=== PATIENT | female | born 1945 | race Caucasian/White ===

== ENCOUNTER 2018-08-10 12:21 | Outpatient (REF) | payer MEDICARE, BC, SELFPAY ==
[2018-08-10 13:12] LABS: ALT 16 U/L (12-78); AST 11 U/L (15-37); Albumin 3.9 g/dL (3.4-5.0); Alkaline Phosphatase 67 U/L (46-116); Anion Gap 8.5 mmol/L (3-11); BUN 18 mg/dL (7-18); Bilirubin, Total 0.3 mg/dL (0.2-1.0); CO2 27.5 mmol/L (21.0-32.0); CREATININE 0.81 mg/dL (0.55-1.02); Calcium 9.9 mg/dL (8.5-10.1); Chloride 105 mmol/L (98-107); Cholesterol 174 mg/dL (50-200); Glucose 83 mg/dL (70-100); HDL Cholesterol 63 mg/dL (40-60); LDL CHOLESTEROL 98 mg/dL (<100); Potassium 4.1 mmol/L (3.5-5.1); Sodium 141 mmol/L (136-145); Total Protein 7.5 g/dL (6.4-8.2); Triglyceride 81 mg/dL (30-150)
== END 2018-08-10 12:41 ==
LOC: NCHCN 12:21
PROVIDERS: PCP Family Medicine; Visit Provider Family Medicine
DX: E78.5 Hyperlipidemia, unspecified (principal)
CPT/HCPCS: 80053; 80061; 83721

== ENCOUNTER 2019-06-18 09:51 | Outpatient (REF) | payer MEDICARE, BC, SELFPAY ==
[2019-06-18 12:12] LABS: HCT 37.3 % (36.0-46.0); HGB 12.4 g/dL (12.0-15.5); Mean Corp. HGB Concentration 33.2 g/dL (32.0-36.0); Mean Corpuscular Hemoglobin 29.8 pg (27.0-33.0); Mean Corpuscular Volume 89.7 fL (80-95); Mean Platelet Volume 9.9 fL (8.0-11.0); Platelet Count 278 x1000/uL (130-400); RBC 4.16 m/cumm (4.00-5.20); RBC Distribution Width 14.2 % (11.7-14.6); White Blood Cell Count 6.51 k/cumm (4.4-10.8)
[2019-06-18 12:23] LABS: ALT 17 U/L (14-59); AST 9 U/L (15-37); Albumin 3.7 g/dL (3.4-5.0); Alkaline Phosphatase 79 U/L (46-116); Anion Gap 8.7 mmol/L (3-11); BUN 20 mg/dL (7-18); Bilirubin, Total 0.3 mg/dL (0.2-1.0); CO2 29.3 mmol/L (21.0-32.0); CREATININE 0.88 mg/dL (0.55-1.02); Calcium 9.8 mg/dL (8.5-10.1); Calculated LDL 94 mg/dL; Chloride 104 mmol/L (98-107); Cholesterol 170 mg/dL (50-200); Glucose 85 mg/dL (70-100); HDL Cholesterol 56 mg/dL (40-60); Sodium 142 mmol/L (136-145); Total Protein 7.6 g/dL (6.4-8.2); Triglyceride 100 mg/dL (30-150)
== END 2019-06-18 10:11 ==
LOC: NCHCN 09:51
PROVIDERS: PCP Family Medicine; Visit Provider Family Medicine
DX: I10 Essential (primary) hypertension (principal); R00.2 Palpitations; E78.5 Hyperlipidemia, unspecified; R91.1 Solitary pulmonary nodule
CPT/HCPCS: 80053; 80061; 85027

== ENCOUNTER 2020-02-27 01:06 | Outpatient (CLI) | payer MEDICARE, BC, SELFPAY ==
--- NOTE | 2020-02-27 | DI.DEXA_ITS ---
EXAM: XR DEXA BONE DENSITY W/WO MICKEY CLINICAL HISTORY: SCREENING FOR OSTEOPOROSIS IN POSTMENOPAUSAL WOMAN,Z78.0 TECHNIQUE: Mammotome C densitometer COMPARISON: CT CHEST FOR PULMONARY EMBOLUS from 06/11/2016 FINDINGS: The lateral view of the thoracic and lumbar spine shows no evidence of compression fractures. The connie ne mineral density measurements of the lumbar spine correspond to a total T-score of 2.0, in the norm al range. Bone mineral density measurements of the left hip correspond to a total T-score of 0.8 and a femoral neck T-score of 0.0. The left forearm bone mineral density measurements correspond to a T -score of the distal 3rd of 0.9. IMPRESSION: Normal bone mineral density.
--- NOTE | 2020-02-27 11:40 | DI.MAMMO_ITS ---
EXAM: MAMMO SCREENING CLINICAL HISTORY: SCREENING, Z12.31 TECHNIQUE: Mammograms were interpreted according to the usual protocol including computer analysis w X[employer] Kitchen CAD system, tomosynthesis and C-view imaging. COMPARISON: 2011 through 2018 FINDINGS: The breasts are composed of mainly fatty density , Breast Density category A. No suspicious masses or suspicious microcalcifications are seen. No skin thickening or abnormal axillary lymph nodes are seen. There has been no significant change from prior exams. IMPRESSION: BI-RADS category 1, negative. Yearly screening mammography is recommended. Breast Density - Category A - Almost entirely fatty
== END 2020-02-27 01:26 ==
PROVIDERS: PCP Family Medicine; Visit Provider Family Medicine
DX: Z13.820 Encounter for screening for osteoporosis (principal); Z78.0 Asymptomatic menopausal state; Z12.31 Encounter for screening mammogram for malignant neoplasm of breast
CPT/HCPCS: 77063; 77067; 77080

== ENCOUNTER 2020-03-10 14:19 | Outpatient (CLI) | payer MEDICARE, BC, SELFPAY ==
--- NOTE | 2020-03-10 13:45 | DI.RAD_ITS ---
EXAM: XR HIP RT COMPLETE AP PELVIS INDICATION: right hip pain. COMPARISON: No exams were available for comparison TECHNIQUE: 2D digital imaging was performed. FINDINGS: In the right hip, there is loss of the joint space, subchondral sclerosis and subchondral cyst format ion. Periarticular spurring is also noted. The left hip is well maintained. No acute fracture or d islocation is seen. There are surgical clips seen in the pelvis. Sacroiliac joints and symphysis pu bis appear unremarkable. The soft tissues are unremarkable. IMPRESSION: Marked degenerative changes of the right hip. DATA REPOSITORY: RADIATION DOSE DELIVERED:
== END 2020-03-10 14:39 ==
PROVIDERS: PCP Family Medicine; Referring Provider Family Medicine; Visit Provider Student in an Organized Health Care Education/Training Program
DX: M25.551 Pain in right hip (principal); M16.11 Unilateral primary osteoarthritis, right hip; M70.61 Trochanteric bursitis, right hip
CPT/HCPCS: 99203; 73502

== ENCOUNTER 2020-04-10 14:00 | Outpatient (CLI) | payer MEDICARE, BC, SELFPAY | END 2020-04-10 14:20 | PROVIDERS: PCP Family Medicine; Visit Provider Student in an Organized Health Care Education/Training Program | DX: Z01.818 Encounter for other preprocedural examination (principal); M16.11 Unilateral primary osteoarthritis, right hip; G47.30 Sleep apnea, unspecified ==

== ENCOUNTER 2020-04-14 01:42 | Outpatient (CLI) | payer MEDICARE, BC, SELFPAY ==
[2020-04-14 10:40] LABS: HCT 33.9 % (36.0-46.0); HGB 11.5 g/dL (12.0-15.5); Mean Corp. HGB Concentration 33.9 g/dL (32.0-36.0); Mean Corpuscular Hemoglobin 30.1 pg (27.0-33.0); Mean Corpuscular Volume 88.7 fL (80-95); Mean Platelet Volume 9.9 fL (8.0-11.0); Platelet Count 240 x1000/uL (130-400); RBC 3.82 m/cumm (4.00-5.20); RBC Distribution Width 14.2 % (11.7-14.6); White Blood Cell Count 5.96 k/cumm (4.4-10.8)
[2020-04-14 11:14] LABS: Anion Gap 9.2 mmol/L (3-11); BUN 28 mg/dL (7-18); CO2 27.8 mmol/L (21.0-32.0); CREATININE 0.98 mg/dL (0.55-1.02); Calcium 10.9 mg/dL (8.5-10.1); Chloride 102 mmol/L (98-107); Estimated GFR 55.63 (mL/min/1.73m2); Glucose 94 mg/dL (74-106); Sodium 139 mmol/L (136-145)
[2020-04-16 15:08] LABS: COVID-19 RT-PCR Result NEGATIVE (Negative)
== END 2020-04-14 02:02 ==
PROVIDERS: PCP Family Medicine; Visit Provider Student in an Organized Health Care Education/Training Program
DX: M25.551 Pain in right hip (principal); M16.11 Unilateral primary osteoarthritis, right hip; Z03.818 Encounter for observation for suspected exposure to other biological agents ruled out; Z01.818 Encounter for other preprocedural examination; Z01.812 Encounter for preprocedural laboratory examination
CPT/HCPCS: 36415; 80048; 85027; 86850; 86900; 86901; U0003

== ENCOUNTER 2020-04-16 06:00 | Observation (INO) | payer MEDICARE, BC, SELFPAY ==
[2020-04-16] VITALS (13 sets, daily range): BP systolic 99–135; BP diastolic 60–89; PULSE 61–86; RESP 12–19; TEMP 36.1–36.8; O2SAT 94–100
[2020-04-16] MEDS: Acetaminophen 500 MG TAB 1000 MG PO ×3 (06:38→21:12)
[2020-04-16] MEDS: Celecoxib 200 MG CAP 400 MG PO (06:39)
[2020-04-16] MEDS: Lactated Ringers 1,000 ML 80 ML IV ×2 (06:39→11:00)
--- NOTE | 2020-04-16 07:15 | DI.RAD_ITS ---
EXAM: XR HIP RT IN OR CLINICAL HISTORY: DJD RIGHT HIP TECHNIQUE: 2D and realtime digital imaging was performed. Fluoroscopy was provided in the OR COMPARISON: CR XR HIP RT COMPLETE AP PELVIS from 03/10/2020 FINDINGS: C-arm fluoroscopy was utilized by Dr. Riddle during right hip joint replacement. Hard copies show total hip arthroplasty in position, components appear well seated. Fluoro time, 39.1 seconds. IMPRESSION: RADIATION DOSE DELIVERED: Total DLP
[2020-04-16] MEDS: ceFAZolin 3,000 MG in Normal Saline 100 ML 200 MG IVPB (08:00)
[2020-04-16] MEDS: Bupivacaine 0.25% Pres-Free 30 ML VIAL (08:30)
[2020-04-16] MEDS: Ketorolac 30 MG/ML VIAL (08:30)
--- NOTE | 2020-04-16 12:08 | PT.INIE ---
Date of service: 04/16/20 Time of Service: 11:25 PT Notes Visit Reasons: R HIP TOTAL Physical Therapy Inpatient Initial Evaluation Date: 04/16/2020 Referring Doctor: Faheem Riddle MD PT Orders: PT CONSULT: Status post Ortho surgery. Status post right anterior LIZ. Precautions: Fall. Standard. WBAT on right LE. Patient Profile/Admitting Diagnosis: Will is a 74-year-old female with degenerative joint disease of the right hip and is status post right total hip arthroplasty on postoperative day 0. 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 She has 12 steps from the cellar with rails on both sides. She is independent with all aspects of ADLs without the need for an assistive ambulatory device nor adaptive equipment prior to surgery. She says that she only has had 1 fall in the past 12 months. She has 4 cats and a dog. 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 Equipment Owned/DME: 4 wheeled walker, front wheeled walker, single-point cane Subjective: Will reports discomfort on the right anterior proximal thigh with movement and with weight-bearing. She denies headache, dizziness, chest pain throughout session. She hopes to stay overnight look forward to going home tomorrow with home health services as she will require help with donning and doffing her brace as well as her JIN stockings. She was mildly upset about her incontinent episode right before ambulation activity which this PT and nurse Simin reassured her about. Objective: General Observation: Bilateral TEDS on. IV access in the left UE. Cold pack on the left hip. Mental Status: Alert and oriented x4 Pain: 4/10 in the right hip ROM: Right Upper Extremity: Shoulder Flexion WFL. Shoulder abduction WFL. Elbow flexion WFL. Wrist flexion WFL. Opening and closing of hand WFL. Left Upper Extremity: Shoulder Flexion WFL. Shoulder abduction WFL. Elbow flexion WFL. Wrist flexion WFL. Opening and closing of hand WFL. Right Lower Extremity: Hip flexion WFL. Hip abduction WFL. Knee flexion WFL. Ankle dorsiflexion to neutral only. Ankle plantarflexion WFL. Left Lower Extremity: Hip flexion WFL. Hip abduction WFL. Knee flexion WFL. Ankle dorsiflexion WFL. Ankle plantarflexion WFL. Strength: Right Upper Extremity: Shoulder flexors 5/5. Shoulder abductors 5/5. Elbow flexors 5/5. Elbow extensors 5/5. Profiling Machine Set Up Operator strong. Left Upper Extremity: Shoulder flexors 5/5. Shoulder abductors 5/5. Elbow flexors 5/5. Elbow extensors 5/5. Profiling Machine Set Up Operator strong. Right Lower Extremity: Hip flexors 4-/5. Hip abductors 4-/5. Knee flexors 5/5. Knee extensors 4-/5. Ankle dorsiflexors 5/5. Ankle plantarflexors 5/5. Left Lower Extremity:Hip flexors 5/5. Hip abductors 5/5. Knee flexors 5/5. Knee extensors 5/5. Ankle dorsiflexors 5/5. Ankle plantarflexors 5/5. Bed Mobility/Transfers: Supine to sit SBA with HOB at 30 degrees Sit to supine contact-guard assist Sit to stand contact-guard assist Stand to sit contact-guard assist Bed to chair contact-guard assist Chair to bed contact-guard assist Gait: Will tolerated level surface ambulation of 60 feet with contact-guard assist with WBAT on the right LE using a front wheeled walker with a leather AFO on the right. Step to gait pattern. Decreased ronna. Initially felt awkward walking but then was able to increase her step length and height towards the end of activity. Balance: Static Sitting: Normal Dynamic Sitting: Normal Static Standing: Fair Dynamic Standing: Fair Special Tests: Mobility Limitations Standardized Measure [facility] AM-PAC 6 clicks Basic Mobility Inpatient Short Form: Raw Score: 18 CMS Score: 47% deficit Informed Consent/Education: Patient instructed in purpose of PT consult and plan of care. Assessment: She demonstrates functional mobility decline requiring the use of a front wheeled walker for all mobility ADL performance, difficulty with walking, unsteadiness on feet, and weakness on the right hip muscles due to postoperative status. Will is a 74-year-old female with degenerative joint disease of the right hip and is status post right total hip arthroplasty on postoperative day 0. Patient presents with clinical signs and symptoms consistent with current/admitting diagnoses that have resulted to mobility limitations, gait instability, generalized weakness, and impairment of motor control as demonstrated by the following impairment level findings: 1. Decreased strength to right hip major muscle groups 2. Impaired standing balance 3. Impaired activity tolerance Impairments are contributing to the following functional limitations: 1. Inability to safely ambulate without assistive device and physical assistance 2. Increase completion time for mobility ADL performance 3. Increased fall risk 4. Inability to negotiate steps alone safely Patient is assessed as a 41997 moderate complexity based on the following: History: 74-year-old female with impairment level findings, functional limitations, and past medical history as indicated above Examination: Demonstrable impairment in strength, balance, and mobility level with underlying impairments and functional limitations as documented above Presentation:Evolving Decision Makin moderate complexity Goals: Goals X 3 days 1. Supine-Sit independent 2. Sit-Supine independent 3. Sit-Stand independent 4. Stand-Sit independent 5. Bed-Chair independent 6. Chair-Bed independent 7. Standby assist gait on level surface with use of least restrictive device for at least 100 feet without report of pain nor dyspnea 8. Standby assist stair negotiation while holding onto bilateral rails for at least 6 steps without report of pain nor dyspnea 9. Independent with home exercise program 10. Good static and dynamic standing balance/tolerance Plan of Care/Treatment Plan: 1-2x/day, 7 days/week x 1 week. Plan of care has been reviewed with the RN INTERNATIONAL providing the service under Physical Therapy direction. Initiate Physical Therapy intervention for strengthening, bed mobility, transfers, gait, stairs, balance training, use of assistive device. DISCHARGE RECOMMENDATIONS: Patient will benefit from home health PT services in order to progress mobility level using least restrictive assistive ambulatory device, assess home safety, identify additional equipment needs, and establish a functional maintenance program that will increase ability of patient to remain at home. No equipment needs at this time. PT Intervention: Today consisted of initial physical therapy evaluation as well as education training on mobility ADL performance using a front wheel walker. TREATMENT CODE/TIME: 9716 2 x 25 minutes, 9753 0 x 16 minutes beginning at 11:25 AM. Thank you for the opportunity to participate in the care of this patient. Nikole Berg PT, DPT, CLT [facility] [place], [place]
--- NOTE | 2020-04-16 12:32 | ROE_ITS ---
Date of service: 04/16/20 Time of Service: 09:32 Operative Note Operative Note DATE OF PROCEDURE: 04/16/20 PRE-OP DIAGNOSIS: Right Hip Osteoarthritis POST-OP DIAGNOSIS: same PROCEDURE: Right Anterior Total Hip Arthroplasty SURGEON: Faheem Riddle CASH MANAGEMENT SPECIALIST: Usman Ford ANESTHESIA: spinal ESTIMATED BLOOD LOSS: 300 PATHOLOGY: none sent TOURNIQUET TIME: 0 COMPLICATIONS: None Patient was transported to: PACU Patient's condition: stable Implants: 1. Depuy [place] Acetabular Component, 54mm 2. Depuy Acetabular Liner, [id number] 3. Depuy Corail Standard Collared Femoral Stem, Size 11 4. Depuy Altrx Ceramic Femoral Head, Size 32+1.5mm Indications: I have seen Will in clinic for symptoms of hip arthritis, confirmed with radiographic findings. Will has exhausted nonoperative methods and was having significant limitations in daily function and desired better function and less pain. I discussed the technical details of a hip replacement. I explained the risks of the procedure to include, but not limited to, bleeding, infection, pain, stiffness, fracture, damage to nerves and vessels, damage to muscles and tendons, loosening, instability, leg length inequality, need for repeat procedure, blood clot and cardiopulmonary demise. Despite these risks, Will elected to proceed. Findings: There was significant signs of arthritis throughout the hip. Procedure Description: Will was greeted in the preoperative holding area where the correct side was identified and marked. The consent was reviewed with the patient and signed. The history and physical was updated. All questions were answered. Will was taken back to the operating room. A spinal anesthestic was then administered. The patient was placed into the supine position on the operating room table. The patient was then positioned onto the ARCH table. Both feet were wrapped with Webrill cotton wrap along with Coban. The feet were placed in specialized boots for the ARCH table, well seated within the boot and secured. SCDs were applied. The patient was then slid down onto a peroneal post and the nonoperative leg was secured in a leg chaudhry attached to the table. The operative side was placed into the ARCH table attachment and bed height and positioning was secured. The pannus was taped with foam tape and pulled across her torso to clear the anterior hip area. A preoperative AP pelvis was obtained to serve as a reference for determining leg lengths. Prophylactic antibiotics in the form of Cefazolin were administered. 1g of Tranxemic Acid was given intravenously within 30 minutes of incision. The right leg was then prepped with Chloraprep and draped in a standard fashion. A second prep with Chloraprep was performed prior to placement of a shower-curtain type drape with Iodine i mpregnated skin protection. A timeout to confirm correct identity, side and site, procedure, allergies, anesthesia, and medical concerns was performed. An obliquely oriented incision was made starting lateral to the ASIS and running distal over the Tensor Fascia Annie (TFL) muscle belly toward the fibular head, approximately 10cm. The skin and soft tissue was dissected sharply, through Nolberto?s fascia, and to the fascia of the TFL. With the fascia and superior border of the IT band identified, the fascia was incised with a new knife just above any perforators from the IT band. The TFL muscle belly was bluntly dissected away from the fascia and moved laterally. The fat between TFL and rectus was identified to ensure the dissection was not within the TFL. Blunt dissection created space between abductors and the capsule and retractor was placed over the lateral femoral neck. The fibers of the rectus femoris tendon were identified and these were freed from the anterior capsule. A second cobra retractor was placed around the medial femoral neck. The TFL was further retracted laterally to show the deep fascia. Careful dissection through this layer identified three main crossing vessels of the lateral femoral circumflex. These were cauterized in multiple locations and then cut without any noticeable bleeding. The TFL was further released bluntly from the deep fascia to expose anterior hip capsule and fat The Ilir orthopaedic retractor was then placed beneath the TFL and against sartorius and medial soft tissues to protect and retract the soft tissues. A T-capsulotomy was then performed starting at the superior lateral acetabulum and moving distally to the intertrochanteric ridge. These capsular flaps were tagged with a No. 1 Ethibond and elevated from within. The capsular flaps were released to the shoulder of the lateral neck and to the lesser trochanter to give excellent visualization of the proximal femur. A neck osteotomy was performed using an oscillating saw based on preoperative templates. This cut started in the shoulder and of the lateral neck and exited medially. The saw was at all times directed medially to avoid injury to the greater trochanter. 6cm of traction was applied to the leg and the osteotomy opened. The femoral head was removed with a corkscrew, making sure to protect the TFL on its exit. This was measured on the back table to determing the starting reamer size. Portions of the rectus obscuring visualization were minimally elevated off the superior acetabulum. An anterior retractor was placed over the anterior wall between capsule and labrum and attached to the Gripper retraction system. A posterior retractor was placed similarly. This provided excellent visualization. The contents of the cotyloid fossa were removed with electrocautery and the labrum was removed with a knife. There was a notable floor osteophyte. There was significant chondromalacia of the superior acetabulum. Acetabular reaming began with a 48mm reamer. This first reaming was directed anterior to posterior and medial to get down to the true floor. This was inspected and reamed until the true floor was reached. The anterior retractor was then released and entry and exit was provided by traction on the capsular flaps. I then reamed sequentially up to a 54mm reamer where good fit was obtained. The larger reamers were oriented based on anatomical reference of the anterior and lateral cosme to ensure proper abduction and anteversion. Positioning and size was confirmed with the fluoroscopy. A 54mm Depuy [place] acetabular component was selected. The acetabulum was reamed around the periphery with the selected acetabular size to prevent a rim fit. The deep tissues were irrigated. The acetabular component was then impacted in a position of about 40-45 degrees of abduction and 15-20 degrees of anteversion, using the patient?s anatomy as the ultimate landmark. Fluoroscopy was used to confirm this. There was excellent clinical data analyst of the acetabular component and the inserting handle was removed. The acetabular liner, Depuy [id number] polyethylene liner, was inserted and lined up with the tines of the acetabular component. There was no soft tissue interposition. The liner was then impacted into position and confirmed to be well-seated. A portion of the aly-articular cocktail was then injected around the acetabulum into the capsule and periosteum. This cocktail consisted of 50cc of 0.25% Bupivicaine and 20cc of Exparel, expanded to a total of 120cc. Traction was released from the femur. The leg was rotated to 120 degrees. Any remaining medial capsule was released until the lesser trochanter was easily palpable. A Andino retractor was placed medially. The lateral capsule was further released into the shoulder to allow access to the greater trochanter. A Andino retractor was placed over the greater trochanter which allowed the trochanter to flip in front of the capsule for excellent exposure. The leg was brought down into maximal extension and 20 degrees of adduction while ensuring there was no impingement on the acetabulum. Any remnant capsule within the trochanter was released. Piriformis and obturator externis were identified and protected. There was excellent access to the proximal femur. The lateral neck remnant was removed with a rongeur. A blunt canal probe was used to identify the canal and trajectory for later broaching. A box osteotome initiated the broach course. A small curved rasp and a curved curette were used to work laterally. Broaching then began with a size 8 Corail broach. This was inserted manually around the trochanter and into the canal before mallet blows. The broach was seated to a few millimeters below the cut level based on the neck cut and the preoperative template. Sequential broaching was continued with the [employer] pneumatic broaching device until a tight fit was obtained with good rotational control of the femur. A trial s tandard neck was inserted along with a 1.5 trial head. The leg was brought out of extension and adduction and then reduced with traction and internal rotation. The leg was stable anteriorly in a position of 30 degrees of extension and 90 degrees of external rotation. Fluoroscopy was used to ensure there was no fracture and the stem was seated well. Leg lengths were checked with an AP pelvis and pelvic reference points. [employer] navigation system was used to confirm appropriate positioning and leg length and offset. Once content with the desired offset and leg lengths, the leg was bro ught back into extension, external rotation and adduction. The periosteum and surrounding tissue was injected with remaining portion of the aly-articular cocktail. The proximal femur was irrigated as well as the deep tissues. The Depuy Corail standard collared stem, size 11, was then manually inserted into the proximal femur making sure to control rotation. It was then malleted into position with light blows, giving breaks to allow bone expansion and decrease risk of fracture. The selected Depuy Altrx Ceramic Head, size 36+1.5mm, was then placed onto the clean and dry trunnion and secured with impaction onto the tapered fit. The leg was brought back out of extension and adduction and reduced with traction and internal rotation. Stability was confirmed with no shuck at 90 degrees of external rotation and 30 degrees of extension. No impingement through range of motion arc. Final x-ray images were obtained with fluoroscopy to confirm adequate positioning and no intraoperative fracture. The deep tissues were thoroughly irrigated with Irrisept chlorhexadine solution. The second dose of TXA 1g was administered intravenously.The capsule was then reapproximated with the previously placed Ethibond sutures. The TFL fascia was finally closed with a No. 2 Stratafix, barbed suture. Deep tissues were then reapproximated with 0 Vicryl and a running 2-0 Vicryl. The skin was closed with a running 4-0 Monocryl in a subcuticular fashion. This was reinforced with skin glue. A Mepilex silver dressing was applied. At the end of the case, all counts were correct. Will was transferred to the hospital bed without difficulty and suffering no apparent complication. Will has a good prognosis. Physical therapy will start today and without restrictions, weight-bearing as tolerated. Aspirin 81mg BID will be used for DVT prophylaxis.
[2020-04-16] MEDS: Normal Saline Flush 10 ML SYR IV ×2 (12:48→21:14)
[2020-04-16] MEDS: HYDROmorphone 2 MG/ML VIAL 0.5 MG IVP (12:49)
--- NOTE | 2020-04-16 14:47 | PTTR_ITS ---
Date of service: 04/16/20 Time of Service: 14:47 PT Notes Visit Reasons: R HIP TOTAL Physical Therapy Inpatient Treatment Note Date: 04/16/2020 Referring Doctor: Faheem Riddle MD PT Orders: PT CONSULT: Status post Ortho surgery. Status post right anterior LIZ. Precautions: Fall. Standard. WBAT on right LE. Subjective: Is happy about how she has done so much on the day of surgery. She hopes to go home with services to help with mobility progression and self- care tasks. Objective: General Observation: Bilateral TEDS on. IV access in the left UE. Cold pack on the left hip. Mental Status: Alert and oriented x4 Pain: 4/10 in the right hip Bed Mobility/Transfers: Supine to sit SBA with HOB at 30 degrees Sit to supine standby assist Sit to stand standby assist Stand to sit standby assist Bed to chair standby assist Chair to bed standby assist Gait: Will tolerated level surface ambulation of 120 feet x 2 with SBA with WBAT on the right LE using a front wheeled walker with a leather AFO on the right. Step-through gait pattern. Mireille beginning to increase. Was able to follow and tolerate instructions for step-through gait pattern. THERA EX: Initiated seated level gluteal and quadriceps setting exercises x 10 as well as B ankle pumping with instruction to perform said exercises every two to three hours. Exercise packet provided. Assessment: Tolerated afternoon session well with confindece demonstrated with stair negotiation. Improved mireille and gait pattern observed as well. has good understanding of exercises. Advised patient to ring her amaya for all [id number]/out-of-bed activities. DISCHARGE RECOMMENDATIONS: Patient will benefit from home health PT services in order to progress mobility level using FWW ambulatory device, assess home safety, identify additional equipment needs, and establish a functional maintenance program that will increase ability of patient to remain at home. OT for training and assistance with dressing and bathing tasks. TREATMENT CODE/TIME: 63778 x 25 minutes, 90680 x 18 minutes beginning at 14:47 PM.
--- NOTE | 2020-04-16 14:52 | INITIAL_ITS ---
- If Service Date Differs Date of service: 04/16/20 Time of Service: 14:52 Care Management Initial Assess REASON FOR HOSPITALIZATION:: Total Right Hip PAST MEDICAL HISTORY/PAST SURGICAL HISTORY:: DJD, sleep apnea, decrease hearing, hypercalcemia, TBI, headaches, HTN, pulmonary nodule, hyperlipidemia. PREVIOUS FUNCTIONAL STATUS/SOCIAL/FAMILY SUPPORTS:: Will lives alone in [place], she has one dog and four cats. She is a retired teacher [employer]. She was indepedent prior to surgery, with meals, transportation and ADL's. She does have close friends in the community that are supportive. CURRENT FUNCTIONAL STATUS:: Will, is alert and engaged with CM during assessment. She is is requesting home health PT/OT. She does have a brace that she needs to wear on her lower extremity and stairs at home. She will have to use a walker and learn to navigate her home. agrees with the plan for home health PT and OT. CM faxed over [employer] [facility] request for servcies. ADVANCE DIRECTIVES:: She has a copy and now in the chart. CM provided new forms for her to review with her sister. Has patient been provided with info about the portal/API?: Yes Did the patient sign up for the portal?: No CODE STATUS:: Full Code INSURANCE COVERAGE / FINANCIAL ISSUES:: Blue Cross Blue Shield, Medicare CURRENT HOME/COMMUNITY SERVICES/EQUIPMENT:: [facility] PRIMARY CARE PHYSICIAN:: POTENTIAL DISCHARGE NEEDS:: New home health services for PT/OT and follow up with as directed. PATIENT/FAMILY EDUCATION NEEDS:: Discharge education, limitations and follow up plan of care includiong ask me three and self management. ANTICIPATED BARRIERS TO DISCHARGE:: No identified barriers TRANSPORTATION:: Via private car with friend at time of discharge. PLAN:: Will will be discharged home when medically ready. She already has her FWW from home, she will have new home health PT and OT. Anticipate she will be discharged home on .
[2020-04-16] MEDS: ceFAZolin 1 GM/50 ML BAG IVPB (16:34)
[2020-04-16] MEDS: Calcium Carbonate 1.25 GM TAB PO (21:12)
[2020-04-16] MEDS: Aspirin E.C. 81 MG TABEC PO (21:13)
[2020-04-16] MEDS: Celecoxib 100 MG CAP 200 MG PO (21:13)
[2020-04-17] MEDS: Lactated Ringers 1,000 ML 80 ML IV (00:30)
[2020-04-17] MEDS: ceFAZolin 1 GM/50 ML BAG IVPB ×2 (00:31→08:01)
[2020-04-17] MEDS: HYDROmorphone 2 MG TAB PO (00:55)
[2020-04-17] MEDS: Docusate Sodium 100 MG CAP PO (01:00)
[2020-04-17 03:37] VITALS: BP 102/58; PULSE 79; RESP 18; TEMP 36.5; O2SAT 96
[2020-04-17 07:23] VITALS: BP 110/72; PULSE 85; RESP 16; TEMP 36.7; O2SAT 97
[2020-04-17] MEDS: hydroCHLOROthiazide 25 MG TAB PO (07:59)
[2020-04-17] MEDS: Cholecalciferol (Vitamin D3) 1,000 UNIT TAB 1000 UNITS PO (07:59)
[2020-04-17] MEDS: Magnesium Oxide 400 MG TAB PO (07:59)
[2020-04-17] MEDS: Aspirin E.C. 81 MG TABEC PO (07:59)
[2020-04-17] MEDS: Celecoxib 100 MG CAP 200 MG PO (07:59)
[2020-04-17] MEDS: Calcium Carbonate 1.25 GM TAB PO (08:00)
[2020-04-17] MEDS: Acetaminophen 500 MG TAB 1000 MG PO (08:00)
[2020-04-17] MEDS: Pantoprazole 40 MG TABCR PO (08:00)
[2020-04-17] MEDS: Multivitamin w/Minerals TAB 1 TAB PO (08:00)
[2020-04-17] MEDS: Ascorbic Acid 500 MG TAB 1000 MG PO (08:00)
--- NOTE | 2020-04-17 09:40 | W.PM.DS.N ---
Date of service: 04/17/20 Time of Service: 09:42 DS: Diagnosis Discharge Diagnosis (1) Degenerative joint disease of right hip: Status: Chronic Discharge Plan Disposition Patient Disposition: HOME Condition: Good Discharge Details Reason For Visit: Right Hip DJD Admit Date/Time: 04/16/20 06:00 Admit Provider: Faheem Riddle Attending Provider: Faheem Riddle Primary Care Provider: Estephanie Still Hospital Course Hospital Course: Patient was admitted to the medical/surgical floor following the procedure. The surgery was tolerated well without any notable medical, surgical, or anesthetic complications. Mobilization began postoperatively. Will was voiding spontaneously. Vitals were stable. Physical therapy worked with the patient and was cleared for discharge home. No acute medical issues. Pain was controlled on oral regimen. Home Meds and New Rx's Prescriptions: New acetaminophen 500 mg tablet 1,000 mg PO Q8H PRN (Reason: pain) Qty: 90 RF: 3 aspirin 81 mg tablet,delayed release (DR/EC) 81 mg PO BID Qty: 60 RF: 0 celecoxib 200 mg capsule 200 mg PO BID PRN (Reason: pain) Qty: 60 RF: 1 docusate sodium [Colace] 100 mg capsule 100 mg PO BID PRNQty: 10 RF: 0 hydromorphone 2 mg tablet 2 mg PO Q6H PRN PRN (Reason: pain) Qty: 12 RF: 0 pantoprazole 40 mg tablet,delayed release (DR/EC) 40 mg PO DAILY Qty: 30 RF: 0 Continued ICaps [id number] ronw-be-bt-unit tablet extended release 2 tab PO DAILY RF: 0 hydrochlorothiazide 25 mg tablet 25 mg PO DAILY RF: 0 ascorbic acid (vitamin C) 500 mg tablet 1 gm PO DAILY RF: 0 cholecalciferol (vitamin D3) 125 mcg (5,000 unit) capsule 125 mcg PO DAILY RF: 0 magnesium hydroxide 400 mg (170 mg magnesium) tablet,chewable 400 mg PO DAILY RF: 0 multivitamin 1 EACH capsule 1 tab PO DAILY RF: 0 cholecalciferol (vitamin D3) 1,000 UNITS tablet 1 tab PO DAILY RF: 0 calcium carbonate [Calcium 500] 500 mg calcium (1,250 mg) Tablet 2,000 mg PO BID RF: 0 Discontinued aspirin 325 MG tablet 1 tab PO PRN PRNRF: 0 acetaminophen [Tylenol Extra Strength] 500 MG tablet 1,000 mg PO PRN PRNRF: 0 Discharge Instructions Additional Instructions: Dr. Riddle's Total Hip Discharge Instructions Activity: The most important activity is to walk. You should try to take short walks a few times a day. You have no restrictions on movement or positioning, but do not try to force what you do. You will find some stiffness and weakness with hip flexion (lifting your knee). Do not try to strengthen this too early, continue to practice walking and stairs and this will come. - Home Health physical and occupational therapy will be scheduled. - You should wear the JIN hose on both legs for 2 weeks. You may remove those at night. These prevent blood pooling and swelling. Dressing: Keep the surgical dressing in place for at least one week, although it may stay in place untill follow-up. It may get wet after 3 days but avoid soaking the dressing. If it gets wet, just lightly pat dry. Most people prefer to cover the dressing with some ClingWrap, Saran Wrap, to keep it dry. After the first week it may be removed if desired and then replaced with light gauze and tape or nothing. It is important to always keep some gauze or the dressing between skin folds, especially when you are sitting, so the incision is not folded over on itself at the belly fold. Medications: - You should take Tylenol and an anti-inflammatory Celebrex as your primary pain control medications - You have been prescribed a stronger pain medication Hydromorphone for breakthrough pain, take as needed as prescribed. - You have also been prescribed a stomach acid reduction agent Pantoprozole to help reduce stomach acid and reflux. - You will be taking Aspirin 81mg twice a day for DVT prevention unless instructed otherwise. - If you have constipation you should take Colace or Miralax (both [id number]-cruhrmo). It takes most people 3-4 days to have a bowel movement. - You may apply ice to the hip and thigh. Follow-up: 2 weeks. If you have any acute concerns or questions, please do not hesitate to contact the office at [phone]. You may contact Dr. Riddle with any questions after hours through the hospital at [phone] or on his cell phone at [phone]. 1. Encounter Date and Reason I certify that WILL ARAMBULA was seen by Faheem Riddle MD on 04/17/20 and that I had a [id number] encounter with this patient that meets the physician face to face encounter requirements. 2. Clinical Findings Supporting Skilled Need and Homebound Status I certify that home health services are medically necessary, include either intermittent halfway and/or physical/speech therapy, and that this patient is homebound in that absences from the home require considerable and taxing effort and are infrequent or of short duration, or are attributable to the need to receive medical care. [X] (a) Attached documentation from encounter provides clinical findings supporting skilled need and homebound status (including what assistance patient requires to leave the home). The encounter with the patient was in whole, or in part, for the following medical condition, which is the primary reason for home health care: Right Hip DJD Fdc: Physical Therapy: Will would benefit from home health PT and OT to address ambulatory dysfunction, weakness, and stiffness from long standing DJD of the right hip, now status post right anterior hip replacement, complicated by obesity along with assistance to accomplish ADL's. There are no restrictions. WBAT with assistance. She also requires the donning and doffing of a right ankle brace needed for ambulation. Speech Therapy: Homebound: Will has notable limitations with gait and is unable to leave her home unassisted. 3. Certification and Authentication I certify that I composed the above information based on my clinical judgement relating to this patient's medical condition and, if applicable, clinical findings communicated to me by the NPP or inpatient physician who performed the Home Health Referral. All further orders will be obtained through Dr. Faheem Riddle. Stand Alone Forms: Nursing Discharge Form Referrals: Faheem iRddle MD [ [facility] STAFF PHYSICIAN] - 05/02/20 11:15 am Activity:: Activity as Tolerated Equipment/Supplies:: Walker Diet:: As Tolerated Discharge Orders Discharge Orders: Discharge Order (Routine); Ordered 04/17/20 Ordered By: Faheem Riddle DS: Summary Status at Discharge Functional status at discharge: uses cane/walker Overall status at discharge: patient is progressing back to baseline Mental Status: mental status grossly normal Speech and Movement: speech and movement normal Mood: congruent mood Affect: normal affect Exam Psych Mental Status: mental status grossly normal Speech and Movement: speech and movement normal Mood: congruent mood Affect: normal affect DS: Data Vitals/I&O Vitals and I&O: Vital Signs Temperature 36.7 C 04/17/20 07:23 Temperature Source Tympanic 04/17/20 07:23 Pulse 85 04/17/20 07:23 Pulse Rhythm Regular 04/17/20 00:31 Respiratory Rate 16 04/17/20 07:23 Respiratory Effort 04/17/20 00:31 Respiratory Depth Normal 04/17/20 00:31 Respiratory Pattern Normal 04/17/20 00:31 Blood Pressure 110/72 04/17/20 07:23 Pulse Oximetry 97 04/17/20 07:23 Respiratory End-tidal CO2 29 04/16/20 10:14 Oxygen Delivery Method Room Air 04/17/20 07:23 Oxygen Flow Rate 0 04/17/20 07:23 Pain Level 1 04/17/20 07:23 Intake & Output 04/16/20 04/16/20 04/17/20 11:59 23:59 11:59 Intake Total 1561.333 / 2796.666 1235.333 / 2796.666 1006.000 / 1006.000 Output Total 300 / 1600 1300 / 1600 900 / 900 Balance 1261.333 / 1196.666 -64.667 / 1196.666 106.000 / 106.000 Weight 105.4 kg Intake: IV 1011.333 / 1526.666 515.333 / 1526.666 606.000 / 606.000 Oral 550 / 1270 720 / 1270 400 / 400 Output: Urine 1300 / 1300 900 / 900 Estimated Blood Loss 300 / 300 Other: Urine Color Yellow Yellow Urine Appearance Clear Clear Urine Odor Normal Normal Comment pt incontinent when standing at bedside in preparation for ambulating with PT Void x1 in the bedside commode. Emesis Description None Voiding Methods Incontinent Bedside Commode Bedside Commode Diaper [facility] Medical History Closed head injury (Acute) Slipped on ice and hit head, had it worked up, and no current issues Degenerative joint disease of right hip (Chronic) Right ankle injury (Acute) Pt. injured ankle years ago and wears a brace consistently Sleep apnea (Acute) uses cpap Trochanteric bursitis, right hip (Chronic) Surgical History Appendectomy Cholecystectomy colonoscopy (03/02/17) H/O bilateral breast reduction surgery (Acute) History of hysterectomy (Chronic) History of reverse total replacement of left shoulder joint (Inactive) History of total replacement of right shoulder joint (Acute) Hx of cataract extraction (Chronic) Hx of rotator cuff surgery (Acute) bilat x4 Social History Smoking/Tobacco Use Status: Never Drug use: Never Current gender identity: female
--- NOTE | 2020-04-18 18:00 | INDS_ITS ---
Date of service: 04/22/20 Time of Service: 09:52 PT Notes Visit Reasons: Right Hip DJD Inpatient Physical Therapy Discharge Summary Dates: 04/18/2020 Dates of Service: 04/16/2020 through 04/17/2020 This is a clinical summary of care provided on the duration of dates listed above. No charge was made in the completion of this documentation. Referring Doctor: Faheem Riddle MD PT Orders: PT CONSULT: Status post Ortho surgery. Status post right anterior LIZ. Precautions: Fall. Standard. WBAT on right LE. Patient Profile/Admitting Diagnosis: Will is a 74-year-old female with degenerative joint disease of the right hip and is status post right total hip arthroplasty on postoperative day 1. PMHX: Medical History (Updated 04/10/20 @ 17:52 by GEMMA Rivera) Closed head injury (Acute) Degenerative joint disease of right hip (Chronic) Trochanteric bursitis, right hip (Chronic) Surgical History (Updated 07/19/18 @ 14:35 by [employer] [place]) Appendectomy Cholecystectomy colonoscopy (03/02/17) Social History/Home Situation: Will lives alone in a private home with 4 steps that lead onto a with rails on both sides, there is 1 step up to enter the main entrance of her house. She has 12 steps from the cellar with rails on both sides. She is independent with all aspects of ADLs without the need for an assistive ambulatory device nor adaptive equipment prior to surgery. She says that she only has had 1 fall in the past 12 months. She has 4 cats and a dog. 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 Equipment Owned/DME: 4 wheeled walker, front wheeled walker, single-point cane Subjective: Looks forward to going home today. Is very hapy to have gotten exercises in a written packet that she can take home with her. Agreeable to [facility] PT/OT services. Objective: General Observation: Bilateral TEDS on. IV access in the left UE. Cold pack on the left hip. Mental Status: Alert and oriented x4 Pain: 1-2/10 in the right hip ROM: Right Upper Extremity: Shoulder Flexion WFL. Shoulder abduction WFL. Elbow flexion WFL. Wrist flexion WFL. Opening and closing of hand WFL. Left Upper Extremity: Shoulder Flexion WFL. Shoulder abduction WFL. Elbow flexion WFL. Wrist flexion WFL. Opening and closing of hand WFL. Right Lower Extremity: Hip flexion WFL. Hip abduction WFL. Knee flexion WFL. Ankle dorsiflexion to neutral only. Ankle plantarflexion WFL. Left Lower Extremity: Hip flexion WFL. Hip abduction WFL. Knee flexion WFL. Ankle dorsiflexion WFL. Ankle plantarflexion WFL. Strength: Right Upper Extremity: Shoulder flexors 5/5. Shoulder abductors 5/5. Elbow flexors 5/5. Elbow extensors 5/5. [employer] Operator strong. Left Upper Extremity: Shoulder flexors 5/5. Shoulder abductors 5/5. Elbow flexors 5/5. Elbow extensors 5/5. [employer] Operator strong. Right Lower Extremity: Hip flexors 4-/5. Hip abductors 4-/5. Knee flexors 5/5. Knee extensors 4-/5. Ankle dorsiflexors 5/5. Ankle plantarflexors 5/5. Left Lower Extremity:Hip flexors 5/5. Hip abductors 5/5. Knee flexors 5/5. Knee extensors 5/5. Ankle dorsiflexors 5/5. Ankle plantarflexors 5/5. Bed Mobility/Transfers: Supine to sit I Sit to supine I Sit to stand I with FWW Stand to sit I with FWW Bed to chair I with FWW Chair to bed I with FWW Gait: Will tolerated level surface ambulation of 260 feet + 150 feet with supervision with WBAT on the right LE using a front wheeled walker with a leather AFO on the right. Step through gait pattern. Increasing ronna. Balance: Static Sitting: Normal Dynamic Sitting: Normal Static Standing: Fair Dynamic Standing: Fair. Assessment: Will demonstrates meaningful functional mobility improvement during this episode of care. She will benefit from PT services to facilitate a smooth transition to home. Patient continues to present with clinical signs and symptoms consistent with current/admitting diagnoses that have resulted to mobility limitations, gait instability, generalized weakness, and impairment of motor control as demonstrated by the following impairment level findings: 1. Decreased strength to right hip major muscle groups 2. Impaired standing balance 3. Impaired activity tolerance Impairments are contiuing to contribute to the following functional limitations: 1. Inability to safely ambulate without assistive device and physical assistance 2. Increase completion time for mobility ADL performance 3. Increased fall risk 4. Inability to negotiate steps alone safely Goals: Goals X 3 days 1. Supine-Sit independent MET 2. Sit-Supine independent MET 3. Sit-Stand independent MET 4. Stand-Sit independent MET 5. Bed-Chair independent MET 6. Chair-Bed independent MET 7. Standby assist gait on level surface with use of least restrictive device for at least 100 feet without report of pain nor dyspnea MET 8. Standby assist stair negotiation while holding onto bilateral rails for at least 6 steps without report of pain nor dyspnea MET 9. Independent with home exercise program NOT MET 10. Good static and dynamic standing balance/tolerance NOT MET DISCHARGE RECOMMENDATIONS: Patient will benefit from home health PT services in order to progress mobility level using least restrictive assistive ambulatory device, assess home safety, identify additional equipment needs, and establish a functional maintenance program that will increase ability of patient to remain at home. No equipment needs at this time. TREATMENT CODE/TIME: 82525 x 23 minutes beginning at 9:52 AM. Thank you for the opportunity to participate in the care of this patient. Nikole Berg PT, DPT, CLT [facility] [place], [place]
== END 2020-04-17 11:42 | disposition home or self-care (01) ==
LOC: PDS 10:30 → MS 10:32
PROVIDERS: Admitting Provider Student in an Organized Health Care Education/Training Program; PCP Family Medicine; Visit Provider Student in an Organized Health Care Education/Training Program
PROC: 0SRB04A Replacement of Left Hip Joint with Ceramic on Polyethylene Synthetic Substitute, Uncemented, Open Approach (ICD-10-PCS; CPT 27130; principal; 2020-04-16 07:30)
DX: M16.11 Unilateral primary osteoarthritis, right hip (principal); M25.551 Pain in right hip; Z96.641 Presence of right artificial hip joint; I10 Essential (primary) hypertension; E78.5 Hyperlipidemia, unspecified; G47.33 Obstructive sleep apnea (adult) (pediatric)
CPT/HCPCS: 27130; 97110; 97162; 97530; NC; 73501; G0378; J0690; J1100; J1885; J2250; J2370; J2405; J2704

== ENCOUNTER → 2020-04-16 07:48 | Outpatient (BNVA) | payer MEDICARE, BC, SELFPAY | PROVIDERS: PCP Family Medicine; Referring Provider Family Medicine; Visit Provider Student in an Organized Health Care Education/Training Program | DX: R69 Illness, unspecified (principal) ==

== ENCOUNTER 2020-05-02 11:53 | Outpatient (CLI) | payer MEDICARE, BC, SELFPAY ==
--- NOTE | 2020-05-02 11:45 | DI.RAD_ITS ---
EXAM: XR HIP RT COMPLETE AP PELVIS INDICATION: right hip pain. COMPARISON: CR XR HIP RT COMPLETE AP PELVIS from 03/10/2020 XR HIP RT IN OR from 04/16/2020 TECHNIQUE: 2D digital imaging was performed. FINDINGS: A right hip prosthesis is again noted. The components appear well aligned. No abnormal bony lucenci es are seen. The left hip shows acetabular spurring. Surgical clips are seen in the lower pelvis. DATA REPOSITORY: RADIATION DOSE DELIVERED:
== END 2020-05-02 12:13 ==
PROVIDERS: PCP Family Medicine; Referring Provider Family Medicine; Visit Provider Student in an Organized Health Care Education/Training Program
DX: Z96.641 Presence of right artificial hip joint (principal); Z47.1 Aftercare following joint replacement surgery
CPT/HCPCS: 73502

== ENCOUNTER → 2020-05-30 10:38 | Outpatient (BNVA) | payer MEDICARE, BC, SELFPAY | PROVIDERS: PCP Family Medicine; Referring Provider Family Medicine; Visit Provider Student in an Organized Health Care Education/Training Program | DX: Z96.641 Presence of right artificial hip joint (principal); Z47.1 Aftercare following joint replacement surgery ==

== ENCOUNTER → 2020-07-25 10:32 | Outpatient (BNVA) | payer MEDICARE, BC, SELFPAY | PROVIDERS: PCP Family Medicine; Referring Provider Family Medicine; Visit Provider Student in an Organized Health Care Education/Training Program | DX: Z96.641 Presence of right artificial hip joint (principal); Z47.1 Aftercare following joint replacement surgery | CPT/HCPCS: 99213 ==

== ENCOUNTER 2021-02-05 09:18 | Outpatient (REF) | payer MEDICARE, BC, SELFPAY ==
[2021-02-05 12:51] LABS: Abs Immature Grans 0.01 10^3/uL (0.0-0.06); Absolute Basophil Count 0.04 10^3/uL (0.0-0.2); Absolute Eosinophil Count 0.24 10^3/uL (0.0-0.7); Absolute Lymphocyte Count 1.53 10^3/uL (1.2-3.4); Absolute Monocyte Count 0.55 10^3/uL (0.1-0.8); Absolute Neutrophil Count 3.58 10^3/uL (1.2-6.7); Basophils % 0.7; HCT 35.8 % (36.0-46.0); Immature Grans % 0.2; Lymphocytes % 25.7; MCH 30.3 pg (27.0-33.0); MCHC 33.5 % (32.0-36.0); MCV 90.4 fL (80-95); MPV 10.2 fL (8.0-11.0); Monocytes % 9.2; Neutrophils % 60.2; Nucleated RBC 0 %; Platelet Count 232 10^3/uL (130-400); RBC 3.96 10^6/uL (3.93-5.22); RDW 13.9 % (11.7-14.6); WBC 5.95 10^3/uL (4.4-10.8)
[2021-02-05 13:03] LABS: ALT 30 U/L (14-59); AST 16 U/L (15-37); Alkaline Phosphatase 60 U/L (46-116); Anion Gap 10.5 mmol/L (3-11); BUN 21 mg/dL (7-18); Bilirubin, Total 0.5 mg/dL (0.2-1.0); CO2 26.5 mmol/L (21.0-32.0); CREATININE 0.9 mg/dL (0.55-1.02); Calcium 10.4 mg/dL (8.5-10.1); Calculated LDL 97 mg/dL (<100); Chloride 102 mmol/L (98-107); Cholesterol 177 mg/dL (<200); Glucose 88 mg/dL (74-106); HDL Cholesterol 47 mg/dL (40-60); Sodium 139 mmol/L (136-145); Total Protein 7.8 g/dL (6.4-8.2); Triglyceride 169 mg/dL (<150)
== END 2021-02-05 09:19 | disposition home or self-care (01) ==
LOC: NCHCN 09:18
PROVIDERS: PCP Family Medicine; Visit Provider Family Medicine
DX: E78.5 Hyperlipidemia, unspecified (principal); I10 Essential (primary) hypertension; E83.52 Hypercalcemia; E66.9 Obesity, unspecified
CPT/HCPCS: 80053; 80061; 85025

== ENCOUNTER 2021-07-21 15:28 | Emergency (ER) | payer MEDICARE, BC, SELFPAY ==
[2021-07-21] VITALS (16 sets, daily range): BP systolic 111–154; BP diastolic 52–88; PULSE 74–101; RESP 13–38; TEMP 36.2; O2SAT 96–100
--- NOTE | 2021-07-21 15:30 | RT.EKG_ITS ---
APPROVED REPORT Exam: Resting ECG Reason for Exam: chest pain Patient Location: E HR:75 bpm ECG Measurements Heart Rate 75 AXIS GA 148 P 46 QRSd 79 QRS 36 QT 365 T 12 QTc 409 Conclusion Sinus rhythm...normal P axis, V-rate 60- 99
--- NOTE | 2021-07-21 16:15 | DI.CT_ITS ---
Exam(s) CT CHEST PE CTA EXAM: CT CHEST PE CTA CLINICAL HISTORY: chest pain, shortness of breath. TECHNIQUE: Imaging Protocol: Axial CT angiography was performed with multi-slice acquisition and mu lti-planar and/or 3D reconstructions. CONTRAST MATERIAL: Intravenous: Omnipaque 350 Contrast volume:100 mL COMPARISON: CT CHEST FOR PULMONARY EMBOLUS from 10/05/2013 CT CHEST FOR PULMONARY EMBOLUS from 10/05/2013 CT CHEST FOR PULMONARY EMBOLUS from 06/11/2016 FINDINGS: There is artifact from the patient's bilateral shoulder replacements. Tracheobronchial tree: Patent where visualized. Pulmonary parenchyma: No consolidation or dominant measurable mass. No architectural distortion. Pulmonary Arteries: No evidence of filling defect to suggest pulmonary emboli. Mediastinum and Abena: No dominant adenopathy or fluid collection. Visualized thyroid gland: There is a 1.6 cm hypodense nodule in the left lobe of the thyroid gland. Pleura: No effusion or pneumothorax. Heart: Mild cardiomegaly. No coronary artery calcifications are seen. No pericardial effusion. Aorta: Thoracic aorta non-dilated. No evidence of dissection. Mild atherosclerosis. Upper abdomen: There is a 3.7 x 2.9 cm complex mass in the superior pole of the left kidney. Divert iculosis of the colon. No evidence of diverticulitis. Soft tissues: Unremarkable. Bones: Within normal limits for the patient's age.Bilateral shoulder replacements. IMPRESSION: 1. No evidence of pulmonary embolism, thoracic aortic dissection or aneurysm. 2. 3.7 x 2.9 cm complex left upper pole renal mass. 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 Follow-up CT scan of the abdomen and pelvis is recommended for complete characterization. Urolo gy consult should be considered. 3. Left thyroid nodule. Nonemergent thyroid ultrasound is recommended. Incidental Findings RADIATION DOSE DELIVERED: 591.13mGy.cm Total DLP DATA REPOSITORY: All CT scans at this facility are submitted to the National Radiology Data Registry (NRDR) Dose Index Registry (DIR) with the [employer] (ACR). RADIATION OPTIMIZATION: All CT scans at this facility use at least one of these dose optimization te chniques: automated exposure control; mA and/or kV adjustment per patient size (includes targeted exa ms where dose is matched to clinical indication); or iterative reconstruction.
[2021-07-21 16:31] LABS: Source Nasal/Nares
[2021-07-21 16:47] LABS: Abs Immature Grans 0.02 10^3/uL (0.0-0.06); Absolute Basophil Count 0.03 10^3/uL (0.0-0.2); Absolute Eosinophil Count 0.26 10^3/uL (0.0-0.7); Absolute Neutrophil Count 4.03 10^3/uL (1.2-6.7); Basophils % 0.4; Eosinophils % 3.6; HCT 33.9 % (36.0-46.0); HGB 11.5 g/dL (11.2-15.7); Immature Grans % 0.3; MCH 30.7 pg (27.0-33.0); MCHC 33.9 % (32.0-36.0); MCV 90.4 fL (80-95); MPV 9.8 fL (8.0-11.0); Neutrophils % 55.7; Nucleated RBC 0 %; Platelet Count 249 10^3/uL (130-400); RBC 3.75 10^6/uL (3.93-5.22); RDW 13.6 % (11.7-14.6); RDW-SD 44.4 fL; WBC 7.24 10^3/uL (4.4-10.8)
[2021-07-21] MEDS: Albuterol 2.5 MG/3 ML INH SOLN VIAL UPD (16:51)
--- NOTE | 2021-07-21 17:02 | ED.GENADUL_ITS ---
Discharge Plan Disposition Patient Disposition: HOME Condition: Stable Discharge Details Clinical Impression: Bronchitis Primary Care Provider: Estephanie Still ED Provider: Jessenia Nuñez Home Meds and New Rx's Prescriptions: New prednisone 20 mg tablet 40 mg PO DAILY 3 Days Qty: 6 RF: 0 albuterol sulfate 90 mcg/actuation aerosol powdr breath activated 2 inh inhalation Q6H PRNQty: 1 RF: 0 benzonatate [Tessalon Perles] 100 mg capsule 100 mg PO BID PRNQty: 10 RF: 0 Continued ICaps [id number] lmqv-vb-jz-unit tablet extended release 2 tab PO DAILY RF: 0 hydrochlorothiazide 25 mg tablet 25 mg PO DAILY RF: 0 ascorbic acid (vitamin C) 500 mg tablet 1 gm PO DAILY RF: 0 cholecalciferol (vitamin D3) 125 mcg (5,000 unit) capsule 125 mcg PO DAILY RF: 0 magnesium hydroxide 400 mg (170 mg magnesium) tablet,chewable 400 mg PO DAILY RF: 0 nystatin 100,000 unit/gram powder 1 applic TP BID Qty: 15 RF: 1 PreserVision AREDS [id number] uhaf-va-dvnl capsule 1 cap PO BID RF: 0 multivitamin 1 EACH capsule 1 tab PO DAILY RF: 0 cholecalciferol (vitamin D3) 1,000 UNITS tablet 1 tab PO DAILY RF: 0 calcium carbonate [Calcium 500] 500 mg calcium (1,250 mg) Tablet 2,000 mg PO BID RF: 0 acetaminophen 500 mg tablet 1,000 mg PO Q8H PRN (Reason: pain) Qty: 90 RF: 3 Discharge Instructions Instructions: Acute Bronchitis (ED) Additional Instructions: Please use the Tessalon Perles as needed for cough The inhaler as needed for shortness of breath, 2 puffs every 4-6 hours Prednisone for the next several days Return earlier with worsening shortness of breath, chest discomfort, fever, chills, or should you have new or worsening complaints He will need close outpatient follow-up with your doctor, 24 to 48 hours regarding a mass on your left kidney and a nodule on your thyroid, talk to your doctor about referral for further assessment findings Referrals: Estephanie Still [Primary Care Provider] - Discharge Data Discharge Date/Time-TO BE ENTERED AT DEPARTURE: 07/21/21 19:41 Medical Decision Making Patient appears well, I did consider coronary artery history, however her heart score Heart score of 3 2 - troponins and 2 - EKGs, negative BNP, CT does not show evidence of PE or any other pathology that is acute, she does have a noted renal mass she will need close outpatient follow-up regarding and also a nodule in her left thyroid which she is made aware regarding Her symptoms are bronchospastic in nature although she is not wheezing I will try several days of prednisone to see if they help with her symptoms give her an albuterol inhaler Josseline Sawyer She will need close outpatient follow-up, 24 to 48 hours and given low threshold return should she have new or thanks Ambulatory sat 95% on room air, her Covid test is negative I think this patient is stable for discharge home Medical Records Medical records reviewed: Yes I reviewed the patient's medical records. Lab Data Lab results reviewed: Yes I reviewed the patient's lab results. ECG Data Prior ECG tracings: available for review HPI General Mode of arrival: ambulatory . Date/Time Provider Initiated Documentation: 07/21/21 15:42 . Limitations to Documentation: no limitations . Information obtained by: patient . HPI Narrative: This 75-year-old female presents with report of cold symptoms for the past 3 weeks with cough. She reports that in the past 24 hours she has developed some mild shortness of breath and bronchospastic cough. She states that when she takes a deep inhalation and make her cough. She denies any chest pressure or significant treatment. She denies any pain or pleurisy. She adamantly denies any chest pain, nausea, diaphoresis. She denies history of coronary artery disease. She has a history of hypertension. Denies history of hyperlipidemia or diabetes. Does not smoke tobacco. Vaccinated for Covid in the past. Related Data Home Medications Medication Instructions Recorded Confirmed cholecalciferol (vitamin D3) 1 tab PO DAILY 10/05/13 07/21/21 multivitamin 1 tab PO DAILY 10/05/13 07/21/21 [id number]-[id number]-R-R-krzkse-resgykv-min 2 tab PO DAILY 03/13/19 07/21/21 3,300 unit-5 mg-200mg-75 unit tablet ER magnesium hydroxide 400 mg (170 mg 400 mg PO DAILY 03/10/20 07/21/21 magnesium) chewable tablet ascorbic acid (vitamin C) 500 mg 1 gm PO DAILY tab 04/10/20 07/21/21 tablet cholecalciferol (vitamin D3) 125 125 mcg PO DAILY 04/10/20 07/21/21 mcg (5,000 unit) capsule hydrochlorothiazide 25 mg tablet 25 mg PO DAILY 04/10/20 07/21/21 calcium carbonate [Calcium 500] 2,000 mg PO BID 04/15/20 07/21/21 acetaminophen 1,000 mg PO Q8H PRN #90 tab 04/17/20 07/21/21 nystatin 100,000 unit/gram topical 1 applic TP BID #15 gm 05/30/20 07/21/21 powder vitamins A,C,O-srrd-qyaggm 14,320 1 cap PO BID 07/25/20 07/21/21 unit-226 mg-200 unit capsule albuterol sulfate 2 inh INHALATION Q6H PRN #1 ea 07/21/21 benzonatate [Tessalon Perles] 100 mg PO BID PRN #10 cap 07/21/21 prednisone 40 mg PO DAILY 3 Days #6 tab 07/21/21 Previous Rx's Medication Instructions Recorded acetaminophen 1,000 mg PO Q8H PRN #90 tab 04/17/20 nystatin 100,000 unit/gram topical 1 applic TP BID #15 gm 05/30/20 powder albuterol sulfate 2 inh INHALATION Q6H PRN #1 ea 07/21/21 benzonatate [Tessalon Perles] 100 mg PO BID PRN #10 cap 07/21/21 prednisone 40 mg PO DAILY 3 Days #6 tab 07/21/21 Allergies Allergy/AdvReac Type Severity Reaction Status Date / Time Sulfa (Sulfonamide Allergy Intermediate anemia Verified 07/21/21 16:27 Antibiotics) chlorthalidone Allergy Mild Verified 07/21/21 16:27 sertraline HCl [From Zoloft] Allergy Verified 07/21/21 16:27 pseudoephedrine AdvReac Mild Headache Verified 07/25/20 10:43 sorbitol AdvReac Mild Nausea Verified 07/25/20 10:43 General Stated Complaint: Chest Pain RON: 3 Review of Systems All systems reviewed & are unremarkable except as noted in HPI and below PFS Medical History (Updated 07/21/21 @ 19:26 by GEMMA Narayan) Closed head injury Slipped on ice and hit head, had it worked up, and no current issues Degenerative joint disease of right hip Right ankle injury Pt. injured ankle years ago and wears a brace consistently Sleep apnea uses cpap Trochanteric bursitis, right hip Surgical History (Updated 05/02/20 @ 11:49 by Jessie Hall) Appendectomy Cholecystectomy colonoscopy (03/02/17) H/O bilateral breast reduction surgery History of hysterectomy History of reverse total replacement of left shoulder joint History of total replacement of right shoulder joint Hx of cataract extraction Hx of rotator cuff surgery bilat x4 Status post right hip replacement Social History Smoking/Tobacco Use Status: Never Smoking risk assessment performed?: Yes Alcohol Intake: never Drug use: Never Substance use type: does not use Current gender identity: female Do you feel safe at home: Yes Do you feel safe in your relationship?: Yes Exam Const General: cooperative, comfortable, no acute distress and not ill appearing HENMT Mouth: oral mucosae normal Eyes Pupils: PERRL Chest Chest: normal inspection of the chest Resp Effort & Inspection: normal respiratory effort Auscultation: clear to auscultation bilaterally Cardio Rate: regular rate Rhythm: regular rhythm GI Inspection: normal to inspection Neuro General: patient alert and patient oriented x3 Extrem Other: 1+ edema to bilateral lower extremities Course Vital Signs Vital signs: Vital Signs Temperature 36.2 C L 07/21/21 15:37 Pulse 84 07/21/21 15:37 Respiratory Rate 22 07/21/21 15:37 Blood Pressure 151/84 H 07/21/21 15:37 Pulse Oximetry 99 07/21/21 15:37 Temperature 36.2 C L 07/21/21 15:37 Temperature Source Temporal Artery Scan 07/21/21 15:37 Pulse 82 07/21/21 16:33 Pulse 101 H 07/21/21 16:50 Respiratory Rate 38 H 07/21/21 16:50 Respiratory Effort 07/21/21 15:59 Respiratory Depth Normal 07/21/21 15:59 Respiratory Pattern Normal 07/21/21 15:59 Blood Pressure 148/52 H 07/21/21 16:33 Blood Pressure Mean 75 07/21/21 16:33 Blood Pressure Position Sitting 07/21/21 15:37 Pulse Oximetry 98 07/21/21 16:40 Oxygen Delivery Method Room Air 07/21/21 15:37 Oxygen Flow Rate 0 07/21/21 15:37 Lab/Test Results Lab/Test Results: Laboratory Tests Range/Units 07/21/21 07/21/21 13:50 15:50 WBC (4.4-10.8) 10^3/uL 7.24 RBC (3.93-5.22) 10^6/uL 3.75 L Hgb (11.2-15.7) g/dL 11.5 Hct (36.0-46.0) % 33.9 L MCV (80-95) fL 90.4 MCH (27.0-33.0) pg 30.7 MCHC (32.0-36.0) % 33.9 RDW (11.7-14.6) % 13.6 Plt Count (130-400) 10^3/uL 249 MPV (8.0-11.0) fL 9.8 Immature Gran % 0.3 Neutrophils % 55.7 Lymphocytes % 29.0 Monocytes % 11.0 Eosinophils % 3.6 Basophils % 0.4 Nucleated RBC % % 0 Absolute Neutrophils (1.2-6.7) 10^3/uL 4.03 Absolute Lymphocytes (1.2-3.4) 10^3/uL 2.10 Absolute Monocytes (0.1-0.8) 10^3/uL 0.80 Absolute Eosinophils (0.0-0.7) 10^3/uL 0.26 Absolute Basophils (0.0-0.2) 10^3/uL 0.03 COVID-19 Source Nasal/Nares
[2021-07-21 17:03] LABS: ALT 28 U/L (14-59); AST 14 U/L (15-37); Albumin 3.9 g/dL (3.4-5.0); Alkaline Phosphatase 62 U/L (46-116); Anion Gap 7.6 mmol/L (3-11); BUN 23 mg/dL (7-18); Bilirubin, Total 0.3 mg/dL (0.2-1.0); CO2 29.4 mmol/L (21.0-32.0); CREATININE 0.9 mg/dL (0.55-1.02); Calcium 9.9 mg/dL (8.5-10.1); Chloride 102 mmol/L (98-107); Glucose 91 mg/dL (74-106); Potassium 3.8 mmol/L (3.5-5.1); Sodium 139 mmol/L (136-145); Total Protein 8.1 g/dL (6.4-8.2)
[2021-07-21 17:04] LABS: Troponin I < 0.05 ng/mL (<0.06)
[2021-07-21 17:05] LABS: NT-proBNP 65 pg/mL (<300)
[2021-07-21 17:32] LABS: COVID-19 PCR Negative (Negative)
[2021-07-21] MEDS: Omnipaque 350 MG/ML 100 ML BTL IV (18:01)
[2021-07-21] MEDS: Normal Saline Flush 10 ML SYR IVP (18:02)
[2021-07-21] MEDS: Normal Saline - Diluent 50 ML VIAL IV (18:02)
--- NOTE | 2021-07-21 18:28 | DI.VRAD_ITS ---
PROCEDURE INFORMATION: Exam: CTA Chest With Contrast Exam date and time: 07/21/2021 4:26 PM Age: 75 years old Clinical indication: Other: Chest pain, shortness of breath TECHNIQUE: Imaging protocol: Computed tomographic angiography of the chest with contrast. 3D rendering (Not supervised by radiologist): MIP and/or 3D reconstructed images were created by the technologist. Radiation optimization: All CT scans at this facility use at least one of these dose optimization techniques: automated exposure control; mA and/or kV adjustment per patient size (includes targeted exams where dose is matched to clinical indication); or iterative reconstruction. Contrast material: OMNIPAQUE 350; Contrast volume: 100 ml; Contrast route: INTRAVENOUS (IV); COMPARISON: CT CHEST FOR PULMONARY EMBOLUS 06/11/2016 5:07 PM FINDINGS: Tubes, catheters and devices: Status post bilateral shoulder prostheses. Pulmonary arteries: Normal. No pulmonary emboli. Aorta: Ectasias noted. No aortic aneurysm. No aortic dissection. Thyroid: Left lobe thyroid low-density lesion 2 cm. Lungs: Unremarkable. No consolidation. No masses. Pleural spaces: Unremarkable. No pneumothorax. No pleural effusion. Heart: Minimal coronary artery calcifications/stents. Lymph nodes: Unremarkable. No enlarged lymph nodes. Kidneys and ureters: There is a lobular bilobed mixed attenuation mass involving the left renal upper pole. There may be 2 discrete lesions measuring up to 3.6 cm. Appearance is of concern for primary renal cell carcinoma. Bones/joints: Unremarkable. No acute fracture. Soft tissues: Unremarkable. IMPRESSION: 1. No evidence for pulmonary embolus. 2. Follow-up left renal mass of concern for primary renal cell carcinoma. 3. Follow-up thyroid ultrasound to assess left lobe lesion. Dictated and Authenticated by: Marissa Garcia MD. Ordering:BEE Ruelas MD
--- NOTE | 2021-07-21 18:30 | RT.EKG_ITS ---
APPROVED REPORT Exam: Resting ECG Reason for Exam: sob Patient Location: E HR:76 bpm ECG Measurements Heart Rate 76 AXIS [place] 140 P 59 QRSd 82 QRS 42 QT 382 T 17 QTc 428 Conclusion Sinus rhythm...normal P axis, V-rate 60- 99
[2021-07-21 19:14] LABS: Troponin I < 0.05 ng/mL (<0.06)
[2021-07-21] MEDS: Benzonatate 100 MG CAP PO (19:34)
[2021-07-21] MEDS: predniSONE 20 MG TAB 40 MG PO (19:34)
--- NOTE | 2021-07-21 20:10 | NUR.NOTE ---
Referral faxed to [facility] Dr Still to follow up within a week for Kidney Lesion.Nursing Note:
== END 2021-07-21 19:41 | disposition home or self-care (01) ==
PROVIDERS: Emergency Provider Physician Assistant; PCP Family Medicine
DX: J20.8 Acute bronchitis due to other specified organisms (principal); R06.02 Shortness of breath; R93.422 Abnormal radiologic findings on diagnostic imaging of left kidney; E04.1 Nontoxic single thyroid nodule; Z20.822 Contact with and (suspected) exposure to COVID-19; Z03.818 Encounter for observation for suspected exposure to other biological agents ruled out
CPT/HCPCS: 36415; 71275; 80053; 87635; 93005; 94640; 99285; 83880; 84484; 85025; 93010; J3490; J7512; J7613

== ENCOUNTER 2021-08-06 02:24 | Outpatient (CLI) | payer MEDICARE, BC, SELFPAY ==
--- NOTE | 2021-08-06 08:00 | DI.CT_ITS ---
Exam(s) CT ABDOMEN PELVIS WO/W EXAM: CT ABDOMEN PELVIS WO/W CLINICAL HISTORY: RENAL MASS N28.89. TECHNIQUE: Imaging Protocol: Axial computed tomography images with coronal and sagittal reformatted images were created and reviewed CONTRAST MATERIAL: Intravenous: Omnipaque 100cc Oral: None COMPARISON: CT CT CHEST PE CTA from 07/21/2021 FINDINGS: VISUALIZED LUNG BASES: No nodules nor pleural effusions evident. ABDOMEN: There is no ascites. LIVER: There are no focal hepatic lesions evident. Hepatic steatosis is noted. GALLBLADDER/BILIARY: The gallbladder surgically absent. CBD is not dilated. PANCREAS: No evidence of pancreatic mass nor dilatation of the pancreatic duct. SPLEEN: Spleen is not enlarged. No obvious intrasplenic lesions. Splenic and portal veins are paten t. ADRENALS: There are no significant adrenal masses. KIDNEYS:Right kidney is unremarkable. There is a malignant-appearing mass in the superior pole of th e left kidney which measures 3.1 by 2.6 by 3.7 cm (craniocaudal). There appears to be an adjacent 2 x 2 cm cyst in the upper pole and slightly below this level is a benign cyst measuring 1.7 x 1.4 cm t here are no other focal findings in the left kidney. No masses in the renal pelvis. Solitary nondil ated ureters bilaterally. The ipsilateral left renal vein is patent without evidence of intraluminal tumor thrombus. There is no regional nor para-aortic adenopathy.. ABDOMINAL AORTA: Abdominal aorta is not enlarged. LYMPH NODES:There is no retroperitoneal nor paraaortic adenopathy. ABDOMINAL WALL: No evidence of significant anterior abdominal wall nor inguinal hernia. GI: There is no evidence of bowel obstruction, free air, nor abscess. PELVIS: GI: No evidence of appendicitis.There is sigmoid diverticuli but no evidence of obvious acute diverti culitis. LYMPH NODES: There is no intrapelvic nor inguinal adenopathy. REPRODUCTIVE: Uterus is either atrophic or surgically absent. Partially obscured by beam hardening a rtifact from right hip prosthesis. URINARY BLADDER: No obvious masses, realizing obscuration by beam hardening artifact from right hip p rosthesis. OSSEOUS: No significant osseous lesions. Right hip prosthesis IMPRESSION: 1. There is a lobulated malignant-appearing mass in the superior pole the left kidney measuring 3.1 x 2.6 x 3.7 cm, as described above. There is an adjacent 2 cm cyst. There is also a smaller benign c yst located slightly lower down in the ipsilateral kidney. No other left renal findings. Left renal vein is patent. 2. The opposite-right kidney appears unremarkable. No obvious abnormality in the urinary bladder. 3. Adrenal glands appear unremarkable 4. No adenopathy nor obvious metastatic disease. No lytic osseous lesions evident. Right hip prosthesis noted RADIATION DOSE DELIVERED: 5,785.34mGy.cm Total DLP DATA REPOSITORY: All CT scans at this facility are submitted to the National Radiology Data Registry (NRDR) Dose Index Registry (DIR) with the [employer] (ACR). RADIATION OPTIMIZATION: All CT scans at this facility use at least one of these dose optimization te chniques: automated exposure control; mA and/or kV adjustment per patient size (includes targeted exa ms where dose is matched to clinical indication); or iterative reconstruction.
[2021-08-06] MEDS: Omnipaque 350 MG/ML 100 ML BTL IJ (09:10)
[2021-08-06] MEDS: Normal Saline - Diluent 50 ML VIAL IV (09:11)
== END 2021-08-06 02:44 ==
PROVIDERS: PCP Family Medicine; Visit Provider Family Medicine
DX: N28.89 Other specified disorders of kidney and ureter (principal); K76.9 Liver disease, unspecified
CPT/HCPCS: 74178; J3490

== ENCOUNTER 2021-08-31 17:25 | Outpatient (REF) | payer MEDICARE, BC, SELFPAY ==
[2021-09-02 11:24] LABS: COVID-19 RT-PCR UVMMC Result Negative (Negative)
== END 2021-08-31 17:26 | disposition home or self-care (01) ==
LOC: NCHCN 17:25
PROVIDERS: PCP Family Medicine; Visit Provider Family Medicine
DX: Z20.822 Contact with and (suspected) exposure to COVID-19 (principal); J18.9 Pneumonia, unspecified organism
CPT/HCPCS: U0003; U0005

== ENCOUNTER 2023-01-05 16:34 | Outpatient (REF) | payer MEDICARE, SELFPAY ==
[2023-01-05 21:09] LABS: HCT 36.6 % (36.0-46.0); HGB 12.4 g/dL (11.2-15.7); MCH 30.3 pg (27.0-33.0); MCHC 33.9 % (32.0-36.0); MCV 90 fL (80-95); MPV 10.1 fL (8.0-11.0); Platelet Count 240 10^3/uL (130-400); RBC 4.09 10^6/uL (3.93-5.22); RDW 13.6 % (11.7-14.6); RDW-SD 43.9 fL; WBC 6.46 10^3/uL (4.4-10.8)
[2023-01-05 21:27] LABS: ALT 30 U/L (14-59); AST 16 U/L (15-37); Alkaline Phosphatase 60 U/L (46-116); Anion Gap 9.8 mmol/L (3-11); BUN 27 mg/dL (7-18); Bilirubin, Total 0.3 mg/dL (0.2-1.0); CO2 27.2 mmol/L (21.0-32.0); Calcium 10.5 mg/dL (8.5-10.1); Calculated LDL 110 mg/dL (<100); Chloride 105 mmol/L (98-107); Cholesterol 215 mg/dL (<200); Estimated GFR 58.39 (mL/min/1.73m2); Glucose 111 mg/dL (74-106); HDL Cholesterol 44 mg/dL (40-60); Potassium 4.3 mmol/L (3.5-5.1); Sodium 142 mmol/L (136-145); Triglyceride 307 mg/dL (<150)
== END 2023-01-05 16:35 | disposition home or self-care (01) ==
LOC: NCHCN 16:34
PROVIDERS: PCP Family Medicine; Visit Provider Family Medicine
DX: E78.5 Hyperlipidemia, unspecified (principal); I10 Essential (primary) hypertension; E83.52 Hypercalcemia
CPT/HCPCS: 80053; 80061; 82306; 85027; 83735

== ENCOUNTER 2023-01-21 00:55 | Outpatient (CLI) | payer MEDICARE, SELFPAY ==
--- NOTE | 2023-01-21 | DI.RAD_ITS ---
Exam(s) XR CHEST 2V PA LATERAL EXAM: XR CHEST 2V PA LATERAL CLINICAL HISTORY: H/O RENAL CA, ? NEW LUNG NODULES. TECHNIQUE: 2D digital imaging was performed. COMPARISON: No exams were available for comparison FINDINGS: 2 views: Heart size is normal. The mediastinum is not widened. Lungs are clear. No infiltrates nor pleural effusions. Bilateral shoulder prostheses are again noted. IMPRESSION: No acute pulmonary findings. DATA REPOSITORY: RADIATION DOSE DELIVERED:
== END 2023-01-21 01:15 ==
PROVIDERS: PCP Family Medicine; Visit Provider Urology
DX: C64.9 Malignant neoplasm of unspecified kidney, except renal pelvis (principal)
CPT/HCPCS: 71046

== ENCOUNTER 2023-02-02 01:58 | Outpatient (CLI) | payer MEDICARE, SELFPAY ==
--- NOTE | 2023-02-02 15:55 | DI.MAMMO_ITS ---
Exam(s) MAMMO SCREENING EXAM: MAMMO SCREENING CLINICAL HISTORY: SCREENING, Z12.31 TECHNIQUE: Bilateral full field digital CC and MLO mammographic images were obtained with 3D tomosyn thesis and utilizing computer aided detection (CAD). COMPARISON: Available for comparison. FINDINGS: Masses/Architectural Distortion: None seen. Microcalcifications: No suspicious pleomorphic-type are seen. Skin Thickening/Nipple Retraction: None. IMPRESSION: 1. No significant interval change with no specific features of malignancy noted. 2. Unless there is more urgent need, screening mammography is recommended, as per [employer] guidelines. BI-RADS Category 1 - Negative Breast Density - Category A - Almost entirely fatty Breast density category C or D implies that the patient has dense breast tissue. Dense breast tissue is very common and is not abnormal but dense breast tissue can make it harder to find cancer on a ma mmogram. Also, dense breast tissue may increase their breast cancer risk. This information about the result of the mammogram report was provided to the patient to raise their awareness. Use this report when you speak with the patient about their risks for breast cancer, which includes their family hist ory. At that time, you may recommend for more screening tests (Ultrasound or MRI) as they might be us eful based on their risk. A negative radiographic report should not delay biopsy if a dominant or clinically suspicious mass is present. Up to ten percent of cancers are not identified on mammography. A negative report may reinforce clinical impression. Adenosis and dense breasts may obscure an underlying neoplasm. False positive reports average 6 to 10%. Patient will receive a letter notifying them of these results.
== END 2023-02-02 02:18 ==
LOC: DI 01:59
PROVIDERS: PCP Family Medicine; Visit Provider Family Medicine
DX: Z12.31 Encounter for screening mammogram for malignant neoplasm of breast (principal)
CPT/HCPCS: 77063; 77067

== ENCOUNTER 2023-03-18 00:58 | Outpatient (CLI) | payer MEDICARE, SELFPAY ==
[2023-03-18 08:39] LABS: ALT 27 U/L (14-59); AST 14 U/L (15-37); Albumin 3.8 g/dL (3.4-5.0); Alkaline Phosphatase 55 U/L (46-116); Anion Gap 5.8 mmol/L (3-11); BUN 24 mg/dL (7-18); Bilirubin, Total 0.4 mg/dL (0.2-1.0); CO2 30.2 mmol/L (21.0-32.0); Calcium 10.1 mg/dL (8.5-10.1); Chloride 102 mmol/L (98-107); Estimated GFR 58.39 (mL/min/1.73m2); Glucose 94 mg/dL (74-106); Potassium 3.8 mmol/L (3.5-5.1); Sodium 138 mmol/L (136-145)
[2023-03-18] MEDS: Normal Saline - Diluent 50 ML VIAL IJ (10:00)
[2023-03-18] MEDS: Normal Saline Flush 10 ML SYR IJ (10:00)
[2023-03-18] MEDS: Omnipaque 350 MG/ML 500 ML BTL-Imaging package 100 ML IJ (10:01)
--- NOTE | 2023-03-18 10:47 | DI.CT_ITS ---
Exam(s) CT ABDOMEN PELVIS W EXAM: CT ABDOMEN PELVIS W CLINICAL HISTORY: LEFT RENAL CANCER C64.2 HX PARTIAL NEPHRECTOMY. TECHNIQUE: Imaging Protocol: Axial computed tomography images with coronal and sagittal reformatted images were created and reviewed CONTRAST MATERIAL: Intravenous: Omnipaque-350 100cc Oral: Yes. Oral contrast was administered for bowel opacification. COMPARISON: CT CT ABDOMEN PELVIS WO/W from 08/06/2021 FINDINGS: VISUALIZED LUNG BASES: No nodules nor pleural effusions evident. ABDOMEN: There is no ascites. LIVER: Liver is hypodense implying steatosis but there are no discrete ominous focal hepatic lesions identified. No dilated intrahepatic ducts. GALLBLADDER/BILIARY: Gallbladder is again noted to be surgically absent. CBD is not dilated. PANCREAS: No evidence of pancreatic mass nor dilatation of the pancreatic duct. SPLEEN: Spleen is not enlarged. No obvious intrasplenic lesions. Splenic and portal veins are paten t. ADRENALS: There are no significant adrenal masses. KIDNEYS:Right kidney unremarkable. Left kidney there is a benign cyst measuring 1.6 by 1.5 cm off th e lateral upper cortex. There has been no recurrence of the previously present solid mass off the po sterior superior aspect of the kidney. No solid masses seen at nor distant to the surgical site. Le ft renal vein is pre aortic and patent. ABDOMINAL AORTA: Abdominal aorta is not enlarged. LYMPH NODES:There is no retroperitoneal nor paraaortic adenopathy. ABDOMINAL WALL: No evidence of significant anterior abdominal wall nor inguinal hernia. GI: There is no evidence of bowel obstruction, free air, nor abscess. PELVIS: GI: No evidence of appendicitis.There is sigmoid diverticulosis. No evidence of obvious acute divert iculitis. There is also diverticulosis of the entire left colon distal to splenic flexure without ev idence of obvious diverticulitis. LYMPH NODES: There is no intrapelvic nor inguinal adenopathy. REPRODUCTIVE: Obscured by beam hardening artifact from right hip prosthesis. However, the uterus kofi ears to be surgically absent. There are no abnormal adnexal masses. No free fluid in the pelvis. URINARY BLADDER: No calculi nor obvious masses evident OSSEOUS: No fractures and no significant osseous lesions. Right hip prosthesis evident. Multilevel degenerative disc disease. Mild degenerative anterolisthes is L4 upon L5. IMPRESSION: 1. Compared to the prior CT scan of August 2021 there has been interval partial left nephrectomy. There is no recurrence of the previously present left kidney neoplasm and the surgical site on the po sterior medial aspect of the left kidney appears unremarkable. There is a small cyst in the superior pole of the left kidney again noted which measures 1.6 x 1.5 cm. Left renal vein is patent. Right kidney appears unremarkable. 2. Previous cholecystectomy. Biliary tree is not dilated. 3. Hepatic steatosis. 4. RADIATION DOSE DELIVERED: 2,539.39mGy.cm Total DLP DATA REPOSITORY: All CT scans at this facility are submitted to the National Radiology Data Registry (NRDR) Dose Index Registry (DIR) with the [employer] (ACR). RADIATION OPTIMIZATION: All CT scans at this facility use at least one of these dose optimization te chniques: automated exposure control; mA and/or kV adjustment per patient size (includes targeted exa ms where dose is matched to clinical indication); or iterative reconstruction.
== END 2023-03-18 01:18 ==
LOC: DI 00:58
PROVIDERS: PCP Family Medicine; Visit Provider Urology
DX: C64.2 Malignant neoplasm of left kidney, except renal pelvis (principal); K76.0 Fatty (change of) liver, not elsewhere classified
CPT/HCPCS: 36415; 80053; 74177

== ENCOUNTER 2023-03-22 15:09 | Outpatient (CLI) | payer MEDICARE, SELFPAY ==
--- NOTE | 2023-03-22 15:15 | DI.RAD_ITS ---
Exam(s) XR SHOULDER LT COMPLETE 2+V XR ELBOW LT COMPLETE XR HUMERUS LT EXAM: XR ELBOW LT COMPLETE and XR humerus LT and XR shoulder LT complete CLINICAL HISTORY: evaluate fx M25.522 PAIN. TECHNIQUE: 2D digital imaging was performed of the left elbow. Eleven images were obtained. AP, la teral and oblique views were obtained. COMPARISON: CT CHEST FOR PULMONARY EMBOLUS from 06/11/[address] CHEST PE CTA from 07/21/2021 CR XR CHEST 2V PA LATERAL from 01/21/2023 FINDINGS: BONES: No acute fracture is present. No bony destructive lesion is seen. There is a short curvilinear density adjacent to the proximal humeral metaphysis which was present on prior examinations. JOINTS: The elbow is normally aligned. There is again seen a left total reverse shoulder replacement. The orthopedic hardware appears stable. There is a well corticated osseous density adjacent to the acromioclavicular joint. It appears old. The elbow is well maintained. No elbow joint effusion is seen. SOFT TISSUE: Normal. IMPRESSION: No acute fractures seen in the left shoulder, humerus or elbow. DATA REPOSITORY: RADIATION DOSE DELIVERED:
--- NOTE | 2023-03-22 15:15 | DI.RAD_ITS ---
Exam(s) XR KNEE LT 3V AP,LAT,SOTERO EXAM: XR KNEE LT 3V AP,LAT,SOTERO CLINICAL HISTORY: evaluate fxM25.562 PAIN. TECHNIQUE: 2D digital imaging was performed of the left knee. Three images were obtained. AP, late ral and PA tunnel views were obtained. COMPARISON: There are no priors for comparison. FINDINGS: BONES: No acute fracture is present. No bony destructive lesion is seen. JOINTS: The knee is normally aligned. No joint effusion is seen. Moderate degenerative changes are se en in all 3 joint compartments characterized by joint space narrowing and osteophytes. SOFT TISSUE: Normal. IMPRESSION: 1. No acute fracture or dislocation. 2. Moderate degenerative changes of the knee. DATA REPOSITORY: RADIATION DOSE DELIVERED:
== END 2023-03-22 15:29 ==
LOC: DI 03-29 15:09
PROVIDERS: PCP Family Medicine; Visit Provider Nurse Practitioner Family
DX: M25.522 Pain in left elbow (principal); M79.622 Pain in left upper arm; M25.512 Pain in left shoulder; M17.12 Unilateral primary osteoarthritis, left knee
CPT/HCPCS: 73562; 73030; 73060; 73080

== ENCOUNTER 2023-08-30 19:32 | Outpatient (REF) | payer MEDICARE, SELFPAY ==
[2023-08-30 14:49] LABS: Abs Immature Grans 0.02 10^3/uL (0.0-0.06); Absolute Basophil Count 0.04 10^3/uL (0.0-0.2); Absolute Eosinophil Count 0.23 10^3/uL (0.0-0.7); Absolute Lymphocyte Count 1.69 10^3/uL (1.2-3.4); Absolute Neutrophil Count 5.15 10^3/uL (1.2-6.7); Basophils % 0.5; HCT 36.1 % (36.0-46.0); HGB 12.3 g/dL (11.2-15.7); Immature Grans % 0.3; Lymphocytes % 21.9; MCH 30.3 pg (27.0-33.0); MCHC 34.1 % (32.0-36.0); MCV 89 fL (80-95); Monocytes % 7.8; Neutrophils % 66.5; RBC 4.06 10^6/uL (3.93-5.22); RDW 13.4 % (11.7-14.6); RDW-SD 43.8 fL; WBC 7.73 10^3/uL (4.4-10.8)
[2023-08-30 15:12] LABS: ALT 40 U/L (14-59); AST 24 U/L (15-37); Albumin 3.9 g/dL (3.4-5.0); Alkaline Phosphatase 60 U/L (46-116); Anion Gap 11.1 mmol/L (3-11); BUN 26 mg/dL (7-18); Bilirubin, Total 0.3 mg/dL (0.2-1.0); CO2 27.9 mmol/L (21.0-32.0); Calcium 10.9 mg/dL (8.5-10.1); Chloride 101 mmol/L (98-107); Estimated GFR 58.39 (mL/min/1.73m2); Glucose 127 mg/dL (74-106); Potassium 3.9 mmol/L (3.5-5.1); Sodium 140 mmol/L (136-145)
== END 2023-08-30 19:33 | disposition home or self-care (01) ==
LOC: NCHCN 19:32
PROVIDERS: PCP Family Medicine; Visit Provider Family Medicine
DX: E55.9 Vitamin D deficiency, unspecified (principal); L29.9 Pruritus, unspecified
CPT/HCPCS: 80053; 82306; 85025

== ENCOUNTER 2024-03-15 21:24 | Outpatient (REF) | payer MEDICARE, SELFPAY | END 2024-03-15 21:25 | disposition home or self-care (01) | LOC: LBN 21:24 | PROVIDERS: PCP Family Medicine; Visit Provider Physician Assistant | DX: M79.645 Pain in left finger(s) (principal) | CPT/HCPCS: 87070; 87205 ==

== ENCOUNTER → 2024-03-16 00:31 | Outpatient (CLI) | payer MEDICARE, SELFPAY ==
--- NOTE | 2024-03-16 | DI.CT_ITS ---
Exam(s) CT ABDOMEN W EXAM: CT ABDOMEN W CLINICAL HISTORY: HX RENAL CANCER SP PARTIAL NEPHRECTOMY? C64.9. TECHNIQUE: Imaging Protocol: Axial computed tomography images with coronal and sagittal reformatted images were created and reviewed CONTRAST MATERIAL: Intravenous: Omnipaque-350 100cc Oral: None COMPARISON: CT CT CHEST PE CTA from 07/21/[address] ABDOMEN PELVIS W from 03/18/2023 FINDINGS: VISUALIZED LUNG BASES: No nodules nor pleural effusions evident. ABDOMEN: There is no ascites. LIVER: There are no focal hepatic lesions evident. No dilated intrahepatic ducts. GALLBLADDER/BILIARY: Gallbladder again noted be surgically absent. CBD is not dilated. PANCREAS: No evidence of pancreatic mass nor dilatation of the pancreatic duct. SPLEEN: Spleen is not enlarged. No obvious intrasplenic lesions. Splenic and portal veins are paten t. ADRENALS: There are no significant adrenal masses. KIDNEYS:Right kidney remains unremarkable. Left kidney reveals no evidence of recurrence of the prev iously resected posterior cortex mass. A benign cyst in the superior pole of the left kidney is unch anged, measuring 1.5 x 1.5 cm. No new solid lesions. There are no filling defects in the renal pelv is. No calculi. No hydronephrosis. The pre aortic left renal vein remains patent.. Left ureter is not dilated. ABDOMINAL AORTA: Abdominal aorta is not enlarged. LYMPH NODES:There is no retroperitoneal nor paraaortic adenopathy. ABDOMINAL WALL: No evidence of significant anterior abdominal wall nor inguinal hernia. GI: Partially included sigmoid reveals diverticulosis without obvious diverticulitis. OSSEOUS: No fractures. No lytic osseous lesions. No blastic osseous lesions. IMPRESSION: 1. Stable appearance of the left kidney with no evidence of recurrence of the previously present neop lastic mass in the left kidney. 2. Unremarkable right kidney. RADIATION DOSE DELIVERED: Total DLP DATA REPOSITORY: All CT scans at this facility are submitted to the National Radiology Data Registry (NRDR) Dose Index Registry (DIR) with the [employer] (ACR). RADIATION OPTIMIZATION: All CT scans at this facility use at least one of these dose optimization te chniques: automated exposure control; mA and/or kV adjustment per patient size (includes targeted exa ms where dose is matched to clinical indication); or iterative reconstruction.
--- NOTE | 2024-03-16 13:05 | DI.RAD_ITS ---
Exam(s) XR CHEST 2V PA LATERAL EXAM: XR CHEST 2V PA LATERAL CLINICAL HISTORY: HX OF RENAL CANCER, ? NEW LUNG NODULES C64.9. TECHNIQUE: 2D digital imaging was performed. COMPARISON: No exams were available for comparison FINDINGS: 2 views: Heart size is normal. The mediastinum is not widened. Lungs are clear. No infiltrates nor pleural effusions. Bilateral shoulder prostheses are again noted. IMPRESSION: No acute pulmonary findings. DATA REPOSITORY: RADIATION DOSE DELIVERED:
[2024-03-16 14:07] LABS: ALT 33 U/L (14-59); AST 15 U/L (15-37); Albumin 3.7 g/dL (3.4-5.0); Alkaline Phosphatase 55 U/L (46-116); Anion Gap 8.4 mmol/L (3-11); BUN 24 mg/dL (7-18); Bilirubin, Total 0.3 mg/dL (0.2-1.0); CO2 28.6 mmol/L (21.0-32.0); Calcium 10.1 mg/dL (8.5-10.1); Chloride 101 mmol/L (98-107); Estimated GFR 58.02 (mL/min/1.73m2); Glucose 101 mg/dL (74-106); Potassium 4.2 mmol/L (3.5-5.1); Sodium 138 mmol/L (136-145); Total Protein 7.7 g/dL (6.4-8.2)
[2024-03-16] MEDS: Omnipaque 350 MG/ML 500 ML BTL-Imaging package 100 ML IJ (14:34)
[2024-03-16] MEDS: Normal Saline - Diluent 50 ML VIAL IJ (14:35)
--- NOTE | 2024-03-16 17:27 | DI.RAD_ITS ---
Exam(s) XR FINGER LT LITTLE EXAM: XR FINGER LT LITTLE CLINICAL HISTORY: s69.90xa lt 5th finger- inj. TECHNIQUE: 2D digital imaging was performed. COMPARISON: No exams were available for comparison FINDINGS: 3 views No evidence of acute fracture nor dislocation of the 5th finger. There is degenerative change in mil d subluxation of the metacarpophalangeal joint of the 3rd finger. Other MCP joints appear unremarkab le. Moderate degenerative changes are noted at the 1st carpometacarpal joint. Some degenerative payton nges noted at the PIP joint of the 5th finger. IMPRESSION: As above but no acute fractures evident. DATA REPOSITORY: RADIATION DOSE DELIVERED:
--- NOTE | 2024-03-16 17:46 | DI.VRAD_ITS ---
PROCEDURE INFORMATION: Exam: XR Left Finger(s) Exam date and time: 03/16/2024 5:20 PM Age: 78 years old Clinical indication: Injury or trauma; Sprain or strain; Left; Little finger; Patient HX: Patient jammed finger. TECHNIQUE: Imaging protocol: Radiologic exam of the left fingers. Views: Minimum 2 views. COMPARISON: CR XR ELBOW LT COMPLETE 03/22/2023 3:41 PM FINDINGS: Bones/joints: Milder degenerative changes are most pronounced at the 1st carpometacarpal joint. Digital overlap on the lateral view. Allowing for this no acute fracture or listhesis with attention to the 5th digit. Soft tissues: Unremarkable. IMPRESSION: Milder degenerative changes are most pronounced at the 1st carpometacarpal joint. Digital overlap on the lateral view. Allowing for this no acute fracture or listhesis with attention to the 5th digit. Dictated and Authenticated by: Bridgette Allred MD. Ordering:LUNA Queen MD
== END ==
PROVIDERS: PCP Family Medicine; Visit Provider Urology
DX: M18.52 Other unilateral secondary osteoarthritis of first carpometacarpal joint, left hand (principal); C64.2 Malignant neoplasm of left kidney, except renal pelvis; R91.8 Other nonspecific abnormal finding of lung field
CPT/HCPCS: 80053; 71046; 73140; 74160

== ENCOUNTER 2024-05-18 18:43 | Outpatient (REF) | payer MEDICARE, SELFPAY | END 2024-05-18 18:44 | disposition home or self-care (01) | LOC: NCHCN 18:43 | PROVIDERS: PCP Family Medicine; Visit Provider Family Medicine | DX: R19.7 Diarrhea, unspecified (principal) | CPT/HCPCS: 83630; 87177 ==

== ENCOUNTER 2024-06-08 12:26 | Outpatient (CLI) | payer MEDICARE, SELFPAY ==
--- NOTE | 2024-06-08 13:20 | DI.RAD_ITS ---
Exam(s) XR CERVICAL SPINE COMP 4-5V EXAM: XR CERVICAL SPINE COMP 4-5V CLINICAL HISTORY: NECK PAIN, M54.2. TECHNIQUE: 2D digital imaging was performed. Seven images were obtained. AP, odontoid, lateral and b ilateral oblique images were obtained. COMPARISON: No exams were available for comparison FINDINGS: The odontoid is intact. The lateral masses are well aligned. There is normal alignment of the cervi chan spine. There osteophytes seen anteriorly at C5-6 and C6-C7. There is mild disc space narrowing a t C5-C6. Degenerative changes of the facets are seen at multiple levels but are most prominent at C2 -C3 and C3-C4. No acute fracture or subluxation is present. There is mild narrowing of the neural for amen on the right at C6-C7. The left neural foramen are suboptimally visualized due to positioning. The cervical thoracic junction is well maintained. The prevertebral soft tissues are unremarkable. Lung apices are clear. IMPRESSION: Moderate degenerative changes seen in the cervical spine. DATA REPOSITORY: RADIATION DOSE DELIVERED:
== END 2024-06-08 12:46 ==
LOC: DI 12:27
PROVIDERS: PCP Family Medicine; Visit Provider Nurse Practitioner Family
DX: M50.121 Cervical disc disorder at C4-C5 level with radiculopathy (principal)
CPT/HCPCS: 72050

== ENCOUNTER 2024-07-24 01:18 | Outpatient (CLI) | payer MEDICARE, SELFPAY ==
--- NOTE | 2024-07-24 | DI.MAMMO_ITS ---
Exam(s) MAMMO SCREENING EXAM: MAMMO SCREENING CLINICAL HISTORY: SCREENING, Z12.31. TECHNIQUE: Bilateral full field digital CC and MLO mammographic images were obtained with 3D tomosyn thesis and utilizing computer aided detection (CAD). COMPARISON: Prior mammograms were reviewed. FINDINGS: There has been no significant change in the appearance and distribution of the fibroglandular tissue. There are no new spiculated masses nor malignant appearing microcalcification groups. There is no significant architectural distortion nor skin thickening-retraction. IMPRESSION: No radiographic evidence of malignancy. BI-RADS Category 1 - Negative Breast Density - Category A - Almost entirely fatty Breast density Category C or D implies that the patient has dense breast tissue. Dense breast tissue can make it harder to find cancer on a mammogram. Dense breast tissue is also associated with an incr eased risk of breast cancer. This information about the result of the mammogram report was provided to the patient to raise their awareness. Use this report when you speak with the patient about their risks for breast cancer, which includes their family history. At that time, you may recommend additional screening tests (Ultrasoun d or MRI) as these tests may add significant information. A negative radiographic report should not delay biopsy if a dominant or clinically suspicious mass is present. Up to ten percent of cancers are not identified on mammography. A negative report may reinforce clinical impression. Adenosis and dense breasts may obscure an underlying neoplasm. False positive reports average 6 to 10%. Patient will receive a letter notifying them of these results.
== END 2024-07-24 01:38 ==
LOC: DI 01:18
PROVIDERS: PCP Family Medicine; Visit Provider Family Medicine
DX: Z12.31 Encounter for screening mammogram for malignant neoplasm of breast (principal)
CPT/HCPCS: 77063; 77067

== ENCOUNTER 2024-09-21 16:48 | Outpatient (REF) | payer MEDICARE, SELFPAY ==
--- NOTE | 2024-09-21 13:15 | SKI_PTH ---
PATIENT: Will Pérez LOC: [facility] U#:[id number] AGE/SX: 78/F ROOM: RE09/21/[address]: Alen Hassan DO : 1945 BED: DIS: 09/21/2024 SPEC #: [id number] RECD: 09/24/24 12:53 STATUS: SADIQ REQ #: [id number] AMAN: 09/21/24 13:[address]: Alen Hassan DEPT: Surgical Specimen RECD BY: Jessenia Kilpatrick ENTERED: 09/24/24 12:53 SP TYPE: SKI OTHR DR: Estephanie Still Tissues: 1 - SKIN BIOPSY(SHAVE/PUNCH) Procedures: SKIN LEVEL 4 Comments: [id number]
== END 2024-09-21 16:49 | disposition home or self-care (01) ==
LOC: LBN 16:48
PROVIDERS: PCP Family Medicine; Referring Provider Family Medicine; Visit Provider Otolaryngology Otolaryngology/Facial Plastic Surgery
DX: D49.2 Neoplasm of unspecified behavior of bone, soft tissue, and skin (principal); C44.91 Basal cell carcinoma of skin, unspecified
CPT/HCPCS: 88305

== ENCOUNTER 2024-10-24 15:59 | Outpatient (CLI) | payer MEDICARE, SELFPAY ==
--- NOTE | 2024-10-24 13:15 | DI.RAD_ITS ---
Exam(s) XR SHOULDER LT COMPLETE 2+V EXAM: XR SHOULDER LT COMPLETE 2+V CLINICAL HISTORY: LEFT SHOULDER PAIN. TECHNIQUE: 2D digital imaging was performed. Three views. COMPARISON: CR CHEST 2 VIEWS PA,LAT from 10/05/2013 CR CHEST 2 VIEWS PA,LAT from 06/11/2016 CR XR SHOULDER LT COMPLETE 2+V from 03/22/2023 FINDINGS: BONES: No acute fracture is present. Stable lucency noted around the humeral component of the prosth esis proximally. JOINTS: Total shoulder prosthesis, unchanged in alignment. No dislocation present. SOFT TISSUE: Normal. IMPRESSION: Stable area of lucency at the proximal portion of the humeral component of the shoulder prosthesis. DATA REPOSITORY: RADIATION DOSE DELIVERED:
--- NOTE | 2024-10-24 14:09 | DI.RAD_ITS ---
Exam(s) XR CERVICAL SP BOO TRAUMA 2-3V EXAM: XR CERVICAL SP BOO TRAUMA 2-3V CLINICAL HISTORY: pain. TECHNIQUE: 2D digital imaging was performed. Two views. COMPARISON: CR XR CERVICAL SPINE COMP 4-5V from 06/08/2024 FINDINGS: BONES: No fracture or destructive lesion. Vertebral bodies are unremarkable. Facet degenerative gabriel ges noted throughout. DISKS: Severe narrowing of the C5-6 and C6-7 disc spaces. Prominent endplate osteophytes at these le vels. ALIGNMENT: Degenerative straightening of the normal cervical lordosis. The odontoid and atlantoaxial articulations are normal. SOFT TISSUE: Normal. The lung apices are clear. IMPRESSION: Severe degenerative changes C5-6 and C6-7. Facet degenerative changes noted throughout. DATA REPOSITORY: RADIATION DOSE DELIVERED:
== END 2024-10-24 16:00 | disposition home or self-care (01) ==
LOC: DIORS 15:59
PROVIDERS: PCP Family Medicine; Referring Provider Family Medicine; Visit Provider Student in an Organized Health Care Education/Training Program
DX: M54.2 Cervicalgia
CPT/HCPCS: 99214; 72040; 73030

== ENCOUNTER 2025-02-14 01:18 | Outpatient (CLI) | payer MEDICARE, SELFPAY ==
--- NOTE | 2025-02-14 | DI.MRI_ITS ---
Exam(s) MR CERVICAL SPINE WO EXAM: MR CERVICAL SPINE WO CLINICAL HISTORY: Cervical spondylosis with radiculopathy, M47.22,? SPINAL STENOSIS,?fx, TECHNIQUE: Multiplanar multisequence MRI of the cervical spine was performed without intravenous con trast. COMPARISON: CR XR CERVICAL SP BOO TRAUMA 2-3V from 10/24/2024 FINDINGS: BONES: Vertebral body heights are maintained. Intervertebral disc spaces are normal. There is straigh tening of the normal cervical lordosis. Endplate degenerative signal changes are seen at C5-6 and C6 -C7. CERVICAL CORD: Craniovertebral junction is unremarkable. The cervical cord is normal size and signal intensity. SOFT TISSUES: Unremarkable. C2-3: No disc herniation or bulge is identified. No significant central spinal canal or neural forami nal stenosis. C3-4: No disc herniation or bulge is identified. No significant central spinal canal or neural forami nal stenosis C4-5: No disc herniation or bulge is identified. Mild degenerative changes are seen at the right unco vertebral joint causing mild right neural foraminal stenosis. C5-6: There is mild prominence of the osteophyte disc complex. No significant central spinal canal s tenosis is seen. Degenerative changes are seen at the right uncovertebral joints causing moderate ri ght neural foraminal stenosis. No significant left neural foraminal stenosis is present. C6-7: No disc herniation or bulge is identified. No significant central spinal canal or neural forami nal stenosis C7-T1: No disc herniation or bulge is identified. No significant central spinal canal or neural fabien inal stenosis IMPRESSION: Degenerative changes seen at C4-5 and C5-6 causing mild right C4-5 and moderate right C5-6 neural for aminal stenosis. DATA REPOSITORY:
== END 2025-02-14 01:38 ==
LOC: DI 01:18
PROVIDERS: PCP Family Medicine; Visit Provider Physician Assistant
DX: M47.22 Other spondylosis with radiculopathy, cervical region (principal)
CPT/HCPCS: 72141

== ENCOUNTER 2025-03-11 12:40 | Outpatient (REF) | payer MEDICARE, SELFPAY ==
[2025-03-11 15:22] LABS: ALT 23 U/L (14-59); AST 14 U/L (15-37); Alkaline Phosphatase 62 U/L (46-116); Anion Gap 4.6 mmol/L (3-11); BUN 25 mg/dL (7-18); Bilirubin, Total 0.4 mg/dL (0.2-1.0); CO2 31.4 mmol/L (21.0-32.0); Calcium 10.7 mg/dL (8.5-10.1); Calculated LDL 101 mg/dL (<100); Chloride 101 mmol/L (98-107); Cholesterol 185 mg/dL (<200); Estimated GFR 57.66 (mL/min/1.73m2); Glucose 95 mg/dL (74-106); HDL Cholesterol 48 mg/dL (>or=50); Potassium 4.3 mmol/L (3.5-5.1); Sodium 137 mmol/L (136-145); Total Protein 7.8 g/dL (6.4-8.2); Triglyceride 181 mg/dL (<150); Vitamin D 25 Total 50 ng/mL (30-100)
== END 2025-03-11 12:41 | disposition home or self-care (01) ==
LOC: NCHCN 12:40
PROVIDERS: PCP Family Medicine; Visit Provider Family Medicine
DX: I10 Essential (primary) hypertension (principal); E55.9 Vitamin D deficiency, unspecified; E78.5 Hyperlipidemia, unspecified
CPT/HCPCS: 80053; 80061; 82306

== ENCOUNTER 2025-05-21 01:06 | Outpatient (CLI) | payer MEDICARE, SELFPAY ==
--- NOTE | 2025-05-21 | DI.US_ITS ---
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 COMPARISON: No exams were available for comparison FINDINGS: RIGHT KIDNEY: Measures 10.4 cm in length. No cysts evident. Normal cortical thickness and corticomedullary differentiation .No solid masses No intrarenal calculi nor hydronephrosis. LEFT KIDNEY: Measures 10.9 cm in length. No cysts evident. Normal cortical thickness and corticomedullary differentiaion. No solids masses. No intrarenal calculi nor hydonephrosis. URINARY BLADDER: Prevoid volume is 119 cc Postvoid not performed as apparently the patient did not feel that she needed to void. No evidence of bladder mass nor diverticuli. Ureterovesical jets: Both identified and appear symmetrical IMPRESSION: 1. No significant focal ultrasound findings in the kidneys. 2. No obvious mass nor calculi in the urinary bladder DATA REPOSITORY:
== END 2025-05-21 01:26 ==
LOC: DI 01:06
PROVIDERS: PCP Family Medicine; Visit Provider Family Medicine
DX: C64.2 Malignant neoplasm of left kidney, except renal pelvis (principal)
CPT/HCPCS: 76770

== ENCOUNTER 2025-06-28 03:52 | Outpatient (CLI) | payer MEDICARE, SELFPAY ==
--- NOTE | 2025-06-28 | DI.RAD_ITS ---
Exam(s) XR CHEST 2V PA LATERAL EXAM: XR CHEST 2V PA LATERAL CLINICAL HISTORY: H/O RENAL CA,? NEW LUNG NODULES,C64.9 TECHNIQUE: 2D digital imaging was performed. Two views. COMPARISON: CR XR CHEST 2V PA LATERAL from 03/16/2024 FINDINGS: HEART: Normal size. Aorta: tortuous. PULMONARY VASCULATURE: Normal. MEDIASTINUM: Unremarkable. LUNGS: Clear. PLEURAL SPACE: No pleural effusion or pneumothorax. BONE:Bilateral shoulder prostheses. Degenerative changes are present in the thoracic spine. No compression fractures. SOFT TISSUES: Unremarkable. IMPRESSION: No acute abnormality. DATA REPOSITORY: RADIATION DOSE DELIVERED:
== END 2025-06-28 04:12 ==
LOC: DI 03:52
PROVIDERS: PCP Family Medicine; Visit Provider Urology
DX: C64.9 Malignant neoplasm of unspecified kidney, except renal pelvis (principal)
CPT/HCPCS: 71046

== ENCOUNTER 2025-07-18 05:49 | Outpatient (CLI) | payer MEDICARE, SELFPAY ==
--- NOTE | 2025-07-18 | DI.CT_ITS ---
Exam(s) CT ABDOMEN W EXAM: CT ABDOMEN W CLINICAL HISTORY: C64.9 Hx renal Ca s/p partial nephrecotomy ? local or scystemic recurrence TECHNIQUE: Imaging Protocol: Axial computed tomography images with coronal and sagittal reformatted images were created and reviewed CONTRAST MATERIAL: Intravenous: Omnipaque 350 Contrast volume:75 ml Contrast route:IV - Oral: No COMPARISON: CT CT ABDOMEN W from 03/16/2024 FINDINGS: ABDOMEN: Lung Bases: Normal where visualized. Liver: Moderate to severe hepatic steatosis. No measurable mass. Gallbladder and biliary tract: Cholecystectomy. No biliary dilation. Pancreas: Normal density, no abnormal calcifications or inflammatory process. Spleen: Normal. Kidneys: Area of scarring again noted at these posterior cyst upper pole of the left kidney. No recurrence mass. Stable small cyst at the left upper pole.. No radiodense stones or obstructive uropathy. No masses seen. Adrenal glands: No masses seen. Abdominal Aorta: Abdominal portion non-dilated. Atherosclerotic changes. Lymph nodes: Within normal limits. Bones: Advanced degenerative are noted in the lower thoracic and lumbar spine. No lytic or blastic lesions. Bowel: Diverticulosis again noted. IMPRESSION: Focal area of scarring again noted at the upper pole of the left kidney. No evidence of recurrent mass. Stable small cyst at the upper pole of the left kidney. No evidence of adenopathy. RADIATION DOSE DELIVERED: 1,184.66mGy.cm Total DLP DATA REPOSITORY: All CT scans at this facility are submitted to the National Radiology Data Registry (NRDR) Dose Index Registry (DIR) with the [employer] (ACR). RADIATION OPTIMIZATION: All CT scans at this facility use at least one of these dose optimization techniques: automated exposure control; mA and/or kV adjustment per patient size (includes targeted exams where dose is matched to clinical indication); or iterative reconstruction.
[2025-07-18 09:51] LABS: ALT 13 U/L (14-59); AST 14 U/L (15-37); Albumin 3.8 g/dL (3.4-5.0); Alkaline Phosphatase 69 U/L (46-116); Anion Gap 9.1 mmol/L (3-11); BUN 29 mg/dL (7-18); Bilirubin, Total 0.4 mg/dL (0.2-1.0); CO2 28.9 mmol/L (21.0-32.0); Calcium 10.4 mg/dL (8.5-10.1); Chloride 102 mmol/L (98-107); Estimated GFR 65.44 (mL/min/1.73m2); Glucose 94 mg/dL (74-106); Potassium 3.7 mmol/L (3.5-5.1); Sodium 140 mmol/L (136-145); Total Protein 7.9 g/dL (6.4-8.2)
[2025-07-18] MEDS: Normal Saline - Diluent 50 ML VIAL IJ (10:06)
[2025-07-18] MEDS: Omnipaque 350 MG/ML 100 ML BTL IJ (10:07)
[2025-07-18] MEDS: Normal Saline Flush 10 ML SYR IVP (10:09)
--- NOTE | 2025-07-18 10:34 | DI.RAD_ITS ---
Exam(s) XR CHEST 2V PA LATERAL EXAM: XR CHEST 2V PA LATERAL CLINICAL HISTORY: C64.9 Hx renal CA ? new lung nodules TECHNIQUE: 2D digital imaging was performed. Two views. COMPARISON: CR XR CHEST 2V PA LATERAL from 06/28/2025 FINDINGS: HEART: Normal size. Aorta: Tortuous. PULMONARY VASCULATURE: Normal. MEDIASTINUM: Unremarkable. LUNGS: Clear. No visible pulmonary nodules. PLEURAL SPACE: No pleural effusion or pneumothorax. BONE:Degenerative changes in the thoracic spine. No compression fractures. Bilateral shoulder prostheses. SOFT TISSUES: Unremarkable. IMPRESSION: No acute abnormality. DATA REPOSITORY: RADIATION DOSE DELIVERED:
== END 2025-07-18 06:09 ==
PROVIDERS: PCP Family Medicine; Visit Provider Urology
DX: C64.9 Malignant neoplasm of unspecified kidney, except renal pelvis (principal)
CPT/HCPCS: 80053; 71046; 74160; J3490

== ENCOUNTER → 2025-09-12 13:30 | Outpatient (BNVA) | payer MEDICARE, SELFPAY | PROVIDERS: PCP Family Medicine; Referring Provider Family Medicine; Visit Provider Physical Therapy Assistant | DX: L98.0 Pyogenic granuloma (principal) | CPT/HCPCS: 17250 ==

== ENCOUNTER → 2025-10-02 10:42 | Outpatient (BNVA) | payer MEDICARE, SELFPAY | PROVIDERS: PCP Family Medicine; Referring Provider Family Medicine; Visit Provider Physical Therapy Assistant | DX: L98.0 Pyogenic granuloma (principal) | CPT/HCPCS: 99212 ==